=== PATIENT | male | born 1950 | race Caucasian/White ===

== ENCOUNTER 2019-04-26 23:51 | Inpatient (IN) ==
[2019-04-27] MEDS ORDERED: 0.9 % Sodium Chloride 1,000 ML IVC ONE
[2019-04-27] MEDS ORDERED: methylPREDNISolone 125 MG/2 ML VIAL IVP ONE
[2019-04-27] MEDS ORDERED: Ipratropium/Albuterol Neb 3 ML ONE ×2 (00:03→00:13)
[2019-04-27] MEDS ORDERED: Ipratropium/Albuterol Neb 3 ML IH ONE (00:05)
[2019-04-27 00:22] LABS: Basophils # 0.1 K/mcL (0.0-0.2); Basophils % 0.4 %; Hematocrit 39.6 % (37.5-50.1); Hemoglobin 13.6 g/dL (12.9-16.9); Immature Granulocytes % 0.4 % (0-4); Lymphocytes # 0.3 K/mcL (0.6-4.6); Lymphocytes % 2.4 %; Mean Corpuscular HGB Conc 34.3 g/dL (31.6-35.5); Mean Corpuscular Hemoglobin 31.2 pg (28.0-33.3); Mean Corpuscular Volume 90.8 fL (83.0-100.0); Mean Platelet Volume 10.2 fL (9.4-12.4); Monocytes # 1.4 K/mcL (0.0-1.3); Platelet Count 175 K/mcL (140-400); Red Blood Count 4.36 M/mcL (4.19-5.50); Red Cell Distribution Width 13.1 % (11.5-14.5); Segmented Neutrophils % 86.8 %
[2019-04-27 00:25] LABS: Neutrophils # 12.2 K/mcL (1.6-8.9)
[2019-04-27 00:39] LABS: Alanine Aminotransferase 11 Units/L (7-52); Albumin 3.5 g/dL (3.5-5.7); Alkaline Phosphatase 75 Units/L (34-104); Aspartate Amino Transferase 14 Units/L (13-39); BUN/Creatinine Ratio 10 (6-26); Bilirubin,Direct 0.2 mg/dL (0.0-0.2); Bilirubin,Indirect 0.5 mg/dL (0.0-1.2); Bilirubin,Total 0.7 mg/dL (0.3-1.0); Blood Urea Nitrogen 9 mg/dL (8-23); Calcium 8.9 mg/dL (8.6-10.3); Carbon Dioxide 20 mEq/L (23-29); Chloride 98 mEq/L (98-107); Globulin 3.5 g/dL (2.4-3.5); Glucose 188 mg/dL (70-105); Osmolality,Calculated 282 (280-300); Potassium 3.6 mEq/L (3.5-5.1); Sodium 134 mEq/L (136-145); eGFR For African Americans > 60 (> 60); eGFR For Non-African Americans > 60 (> 60)
[2019-04-27 00:43] LABS: Platelet Estimate Normal (Normal)
[2019-04-27 00:50] LABS: Troponin I 0.18 ng/mL (< 0.04)
--- NOTE | 2019-04-27 00:55 | Emergency Department Note ---
Disposition Clinical Impression: Acute exacerbation of chronic obstructive airways disease, Elevated troponin, Multifocal atrial tachycardia Disposition: Admitted As Inpatient Condition: Serious Time of Disposition: 03:41 SOB HPI - General Chief Complaint: ED Shortness of Breath/Dyspnea Stated Complaint: lance Time Seen by Provider: 04/27/19 00:00 Source: patient, family, EMS Mode of arrival: ambulatory Limitations: no limitations Nursing Notes Reviewed: Yes Vital Signs Reviewed: Yes - History of Present Illness 68-year-old male history of COPD presents to the emergency department with palpitations, tachycardia, shortness of breath and not feeling well. Patient states for the past week is not felt very mccullough been coughing up a bunch of phlegm said to yellow and greenish in color. He has not had any fevers. Has not been nauseous or vomiting. Today status started to not feel very well [email or web address] galindo she is having more difficult time breathing. He does not use oxygen at home does not have CPAP at home. Did use someone else's albuterol is a did feel mildly better after receiving that. Does not have history of atrial fibrillation and is not on any blood thinners. Has no history of ACS. Patient otherwise has no other complaints at this time. He says he does not feel well. He is not complaining of any chest pain at this time. Is complaining of generalized abdominal pain mainly located in the epigastrium. Says is not radiating. He describes the pain as 6 out of 10 worse with palpation dull throbbing ache. - Related Data Home Medications Medication Instructions Recorded Confirmed Albuterol Sulfate [Proair Hfa] 2 inh AER Q4HR PRN 04/27/19 04/28/19 Lisinopril [Zestril] 20 mg PO QAM 04/27/19 04/28/19 Simvastatin [Zocor] 20 mg PO HS 04/27/19 04/28/19 Allergies Allergy/AdvReac Type Severity Reaction Status Date / Time No Known Allergies Allergy Verified 04/28/19 09:04 All systems ED: reviewed and negative except as stated. Review of Systems: As Per HPI Past Medical History - Past Medical History Attestation: Yes The following information was validated with the patient. Source: patient Medical history: Reports: COPD, hypertension Surgical history: Reports: vasectomy Psychiatric history: Reports: no psych history - Social History Smoking Status: Current every day smoker Smokeless Tobacco Status: No Alcohol use: Reports: occasionally Drug use: Reports: marijuana Physical Exam - General Limitations: no limitations General appearance: alert - Head Head exam: atraumatic, normocephalic, normal inspection - Eye Eye exam: Present: normal appearance, PERRL, EOMI - ENT ENT exam: normal exam, normal oropharynx, mucous membranes moist - Neck Neck exam: Present: normal inspection, full ROM, trachea midline - Chest Chest inspection: Present: normal inspection, symmetric chest wall rise - Respiratory Respiratory exam: Present: wheezes (Bilaterally), accessory muscle use. Absent: respiratory distress, stridor, prolonged expiratory phase - Cardiovascular Cardiovascular exam: Present: regular rate, normal rhythm, normal heart sounds - Abdominal Exam Abdominal exam: Present: soft, tenderness. Absent: distention, guarding, rebound, rigidity Abdominal tenderness: Present: diffuse, mild - Extremities Exam Extremities exam: Present: normal inspection. Absent: pedal edema - Back Exam Back exam: Present: normal inspection, full ROM. Absent: tenderness, CVA tenderness (R), CVA tenderness (L) - Neurological Exam Neurological exam: Present: alert, oriented X3 - Skin Skin exam: Present: warm, dry, intact, normal color Course Course Narrative: Patient presented with shortness of breath. Patient was in MAT when he presented here. Patient is not anticoagulated. We will give patient 2 DuoNeb treatment as he did receive one prior to coming here. We will give patient Solu-Medrol for COPD exacerbation. We will get chest x-ray as well as basic labs getting CBC BMP lactate as well as troponin we will get EKG. Well-seated d-dimer. If elevated we will get CT angiogram of the chest pain we will do CT angiogram of the abdomen due to his abdominal pain as there is worried about possible mesenteric ischemia. Patient will be given magnesium as well as diltiazem to control his rate. We will give patient a magnesium drip after the bolus. Patient blood pressure is good at this time. Disposition most likely will be admission. Vital Signs O2 Sat by Pulse Oximetry 90 04/27/19 00:03 Temperature 99.2 F 04/27/19 00:11 Pulse Rate 110 04/27/19 02:30 Respiratory Rate 20 04/27/19 02:30 Blood Pressure 108/78 04/27/19 02:30 O2 Sat by Pulse Oximetry 96 04/27/19 02:30 Oxygen Delivery Oxygen Delivery Nasal Cannula Shortness of Breath/Dyspnea - MDM Narrative Medical decision making narrative: 68-year-old male presented to the emergency department with shortness of breath. He originally arrived he was in multi-focal atrial tachycardia. There was no signs of A. fib. We did start him on diltiazem to give him magnesium for this. Patient is also having a COPD exacerbation. He did receive Solu-Medrol as well as double DuoNeb treatment as he did receive an albuterol in route. Patient did have wheezing on exam and this did improve after receiving the DuoNeb's. We will treat patient with Zithromax. Did get a CT of the chest with contrast rule out pulmonary and was not due to an elevated d-dimer. This came back negative for PE but did show possible inflammation versus atelectasis. The COPD could be associated with this we also gave him Zithromax to help with possible pneumonia. CT abdomen and pelvis had no acute findings. Patient did have mild leukocytosis. We did have a first troponin of 0.18F first thought this was due to demand ischemia as he had no acute ST changes based on his EKG. We do a repeat a partially 2 hours later the was elevated to 0.23. Due to this we are going to start patient on low-dose heparin. To rule out ACS. I feel patient needs to be admitted for further evaluation. I spoke with Dr. Whitney who agreed to admit the patient to their service. Patient accepted in stable condition. Chest X-Ray 04/27/19 00:00 IMPRESSION: No evidence of acute cardiopulmonary disease. D/ / Barron Ribera MD / Barron Ribera MD Interpreting Provider: Barron Ribera MD Abdomen/Pelvis CTA 04/27/19 00:50 IMPRESSION: No evidence for aortic aneurysm or dissection. Central pulmonary arteries appear patent without evidence for pulmonary embolism. Diffuse tree-in-bud type opacities, right more than left. Findings are nonspecific and could reflect infectious/inflammatory process. Spiculated cavitary nodule to right upper lobe measuring 1.2 x 1.1 cm along with an irregular pulmonary nodule to the right lower lobe measuring 8 x 7 mm. Findings could potentially relate to infectious/inflammatory process above, but neoplastic etiology must be excluded. Recommend further evaluation with PET-CT versus soft tissue sampling versus close interval follow-up with repeat CT chest in 3 months. Mediastinal and bilateral hilar lymphadenopathy, nonspecific. This may be reactive, given the other findings metastatic disease is not excluded. Recommend attention on follow-up. No acute or suspicious abdominal or pelvic abnormality. Atherosclerosis to include coronary artery disease. D/ / Brenden Hartley MD / Brenden Hartley MD Interpreting Provider: Brenden Hartley MD Chest CTA 04/27/19 00:50 IMPRESSION: No evidence for aortic aneurysm or dissection. Central pulmonary arteries appear patent without evidence for pulmonary embolism. Diffuse tree-in-bud type opacities, right more than left. Findings are nonspecific and could reflect infectious/inflammatory process. Spiculated cavitary nodule to right upper lobe measuring 1.2 x 1.1 cm along with an irregular pulmonary nodule to the right lower lobe measuring 8 x 7 mm. Findings could potentially relate to infectious/inflammatory process above, but neoplastic etiology must be excluded. Recommend further evaluation with PET-CT versus soft tissue sampling versus close interval follow-up with repeat CT chest in 3 months. Mediastinal and bilateral hilar lymphadenopathy, nonspecific. This may be reactive, given the other findings metastatic disease is not excluded. Recommend attention on follow-up. No acute or suspicious abdominal or pelvic abnormality. Atherosclerosis to include coronary artery disease. D/ / Brenden Hartley MD / Brenden Hartley MD Interpreting Provider: Brenden Hartley MD - Medical Records Medical records reviewed: Yes I reviewed the patient's medical records. - Lab Data Lab results reviewed: Yes I reviewed the patient's lab results. Result diagrams: 04/27/19 08:22 04/28/19 04:27 Lab Results 04/27/19 04/27/19 04/27/19 Range/Units 00:05 00:05 00:05 WBC 14.0 H (4.3-11.1) K/mcL RBC 4.36 (4.19-5.50) M/mcL Hgb 13.6 (12.9-16.9) g/dL Hct 39.6 (37.5-50.1) % MCV 90.8 (83.0-100.0) fL MCH 31.2 (28.0-33.3) pg MCHC 34.3 (31.6-35.5) g/dL RDW 13.1 (11.5-14.5) % Plt Count 175 (140-400) K/mcL MPV 10.2 (9.4-12.4) fL Immature Gran % 0.4 (0-4) % Seg Neutrophils % 86.8 % Lymphocytes % 2.4 % Monocytes % 10.0 % Eosinophils % 0.0 % Basophils % 0.4 % Neutrophils # 12.2 H (1.6-8.9) K/mcL Lymphocytes # 0.3 L (0.6-4.6) K/mcL Monocytes # 1.4 H (0.0-1.3) K/mcL Eosinophils # 0.0 (0.0-0.6) K/mcL Basophils # 0.1 (0.0-0.2) K/mcL Platelet Estimate Normal (Normal) D-Dimer 1405 H (0-500) ng/mLFEU Sodium 134 L (136-145) mEq/L Potassium 3.6 (3.5-5.1) mEq/L Chloride 98 (98-107) mEq/L Carbon Dioxide 20 L (23-29) mEq/L BUN 9 (8-23) mg/dL Creatinine 0.88 (0.70-1.30) mg/dL Est GFR ( Amer) > 60 (> 60) Est GFR (Non-Af Amer) > 60 (> 60) BUN/Creatinine Ratio 10 (6-26) Glucose 188 H (70-105) mg/dL Calculated Osmolality 282 (280-300) Lactic Acid (0.5-2.2) mmol/L Calcium 8.9 (8.6-10.3) mg/dL Total Bilirubin 0.7 (0.3-1.0) mg/dL Direct Bilirubin 0.2 (0.0-0.2) mg/dL Indirect Bilirubin 0.5 (0.0-1.2) mg/dL AST 14 (13-39) Units/L ALT 11 (7-52) Units/L Alkaline Phosphatase 75 (34-104) Units/L Troponin I 0.18 H* (< 0.04) ng/mL B-Natriuretic Peptide (Less than 100) pg/mL Serum Total Protein 7.0 (6.4-8.9) g/dL Albumin 3.5 (3.5-5.7) g/dL Globulin 3.5 (2.4-3.5) g/dL Albumin/Globulin Ratio 1.0 L (1.1-2.2) Urine Color (Yellow) Urine Clarity (Clear) Urine pH (5.0-8.0) pH Units Ur Specific Preston (1.010-1.025) Urine Protein (Neg-Trace) mg/dL Urine Glucose (UA) (Normal) mg/dL Urine Ketones (Negative) mg/dL Urine Blood (Negative) Urine Nitrite (Negative) Urine Bilirubin (Negative) Urine Urobilinogen (Normal) mg/dL Ur Leukocyte Esterase (Negative) Urine Microscopic RBC (0-3) per hpf Urine Microscopic WBC (0-3) per hpf Ur Squamous Epith Cells (None-Few) per lpf Urine Bacteria (None-Few) per hpf Hyaline Casts (None-Few) per lpf Urine Mucus (Few) Ur Culture Indicated? (NO) 04/27/19 04/27/19 04/27/19 Range/Units 00:05 00:36 02:00 WBC (4.3-11.1) K/mcL RBC (4.19-5.50) M/mcL Hgb (12.9-16.9) g/dL Hct (37.5-50.1) % MCV (83.0-100.0) fL MCH (28.0-33.3) pg MCHC (31.6-35.5) g/dL RDW (11.5-14.5) % Plt Count (140-400) K/mcL MPV (9.4-12.4) fL Immature Gran % (0-4) % Seg Neutrophils % % Lymphocytes % % Monocytes % % Eosinophils % % Basophils % % Neutrophils # (1.6-8.9) K/mcL Lymphocytes # (0.6-4.6) K/mcL Monocytes # (0.0-1.3) K/mcL Eosinophils # (0.0-0.6) K/mcL Basophils # (0.0-0.2) K/mcL Platelet Estimate (Normal) D-Dimer (0-500) ng/mLFEU Sodium (136-145) mEq/L Potassium (3.5-5.1) mEq/L Chloride (98-107) mEq/L Carbon Dioxide (23-29) mEq/L BUN (8-23) mg/dL Creatinine (0.70-1.30) mg/dL Est GFR ( Amer) (> 60) Est GFR (Non-Af Amer) (> 60) BUN/Creatinine Ratio (6-26) Glucose (70-105) mg/dL Calculated Osmolality (280-300) Lactic Acid 2.1 2.8 H (0.5-2.2) mmol/L Calcium (8.6-10.3) mg/dL Total Bilirubin (0.3-1.0) mg/dL Direct Bilirubin (0.0-0.2) mg/dL Indirect Bilirubin (0.0-1.2) mg/dL AST (13-39) Units/L ALT (7-52) Units/L Alkaline Phosphatase (34-104) Units/L Troponin I (< 0.04) ng/mL B-Natriuretic Peptide 206 H (Less than 100) pg/mL Serum Total Protein (6.4-8.9) g/dL Albumin (3.5-5.7) g/dL Globulin (2.4-3.5) g/dL Albumin/Globulin Ratio (1.1-2.2) Urine Color (Yellow) Urine Clarity (Clear) Urine pH (5.0-8.0) pH Units Ur Specific Preston (1.010-1.025) Urine Protein (Neg-Trace) mg/dL Urine Glucose (UA) (Normal) mg/dL Urine Ketones (Negative) mg/dL Urine Blood (Negative) Urine Nitrite (Negative) Urine Bilirubin (Negative) Urine Urobilinogen (Normal) mg/dL Ur Leukocyte Esterase (Negative) Urine Microscopic RBC (0-3) per hpf Urine Microscopic WBC (0-3) per hpf Ur Squamous Epith Cells (None-Few) per lpf Urine Bacteria (None-Few) per hpf Hyaline Casts (None-Few) per lpf Urine Mucus (Few) Ur Culture Indicated? (NO) 04/27/19 04/27/19 Range/Units 02:00 02:15 WBC (4.3-11.1) K/mcL RBC (4.19-5.50) M/mcL Hgb (12.9-16.9) g/dL Hct (37.5-50.1) % MCV (83.0-100.0) fL MCH (28.0-33.3) pg MCHC (31.6-35.5) g/dL RDW (11.5-14.5) % Plt Count (140-400) K/mcL MPV (9.4-12.4) fL Immature Gran % (0-4) % Seg Neutrophils % % Lymphocytes % % Monocytes % % Eosinophils % % Basophils % % Neutrophils # (1.6-8.9) K/mcL Lymphocytes # (0.6-4.6) K/mcL Monocytes # (0.0-1.3) K/mcL Eosinophils # (0.0-0.6) K/mcL Basophils # (0.0-0.2) K/mcL Platelet Estimate (Normal) D-Dimer (0-500) ng/mLFEU Sodium (136-145) mEq/L Potassium (3.5-5.1) mEq/L Chloride (98-107) mEq/L Carbon Dioxide (23-29) mEq/L BUN (8-23) mg/dL Creatinine (0.70-1.30) mg/dL Est GFR ( Amer) (> 60) Est GFR (Non-Af Amer) (> 60) BUN/Creatinine Ratio (6-26) Glucose (70-105) mg/dL Calculated Osmolality (280-300) Lactic Acid (0.5-2.2) mmol/L Calcium (8.6-10.3) mg/dL Total Bilirubin (0.3-1.0) mg/dL Direct Bilirubin (0.0-0.2) mg/dL Indirect Bilirubin (0.0-1.2) mg/dL AST (13-39) Units/L ALT (7-52) Units/L Alkaline Phosphatase (34-104) Units/L Troponin I 0.23 H* (< 0.04) ng/mL B-Natriuretic Peptide (Less than 100) pg/mL Serum Total Protein (6.4-8.9) g/dL Albumin (3.5-5.7) g/dL Globulin (2.4-3.5) g/dL Albumin/Globulin Ratio (1.1-2.2) Urine Color Dark Yellow (Yellow) Urine Clarity Cloudy A (Clear) Urine pH 6.0 (5.0-8.0) pH Units Ur Specific Preston 1.019 (1.010-1.025) Urine Protein 100 H (Neg-Trace) mg/dL Urine Glucose (UA) 500 H (Normal) mg/dL Urine Ketones Trace H (Negative) mg/dL Urine Blood Small H (Negative) Urine Nitrite Negative (Negative) Urine Bilirubin Small H (Negative) Urine Urobilinogen 2.0 H (Normal) mg/dL Ur Leukocyte Esterase Negative (Negative) Urine Microscopic RBC 3-5 H (0-3) per hpf Urine Microscopic WBC 3-5 H (0-3) per hpf Ur Squamous Epith Cells Many H (None-Few) per lpf Urine Bacteria None Seen (None-Few) per hpf Hyaline Casts Moderate H (None-Few) per lpf Urine Mucus Many H (Few) Ur Culture Indicated? NO (NO) - Radiology Data Radiology results reviewed: Yes I reviewed the patient's radiology results. - EKG Data EKG attestation: Yes I reviewed and interpreted this EKG. EKG results narrative: EKG done at 0000 review by myself and attending shows MAT with 3-4 morphologies of P waves at a rate of 135, QRS 90, QTC 432. There is no acute ST changes no acute T-wave changes no other signs of ischemia. No signs of hypertrophy, heart strain, heart block. No WPW/Brugada/HOCM. EKG is changed based on old EKG done 02/29/12 where there is a normal sinus rhythm shown. EKG #2 done at 0-46 review myself and the attending shows sinus tachycardia at a rate of 103, [place] interval 155, QRS 89, QTC 444. There is no acute ST changes no acute T-wave changes no other signs of ischemia. No signs of hypertrophy, heart strain, heart block. Patient is now in a normal sinus rhythm has converte d from MAT Attestation Statement - Attestation Attestation: I have seen this patient with the resident physician, I have personally evaluated this patient. I had reviewed the chart and document dictation by the resident physician and aM in agreement with the information documented by the resident physician. Please see documentation by the resident physician for complete chart including past medical history, family medical history, review of systems, current history and physical and laboratory and imaging studies. I was present for all procedures, provided direct supervision for all procedures, was present for the entirety of all procedures and provided direct guidance during the procedures. Please see documentation by the resident physician for any procedures performed. I have reviewed all interpretations of EKGs, and reviewed all EKGs performed on patient's as well. I have also reviewed reports of imaging as provided by radiology.
[2019-04-27] MEDS ORDERED: Aspirin 81 MG TAB.CHEW PO ONE (01:31)
[2019-04-27] MEDS: Isovue-370 500 ML BOTTLE IVP ONE (02:23)
[2019-04-27 02:25] LABS: Bilirubin,Urine Small (Negative); Blood,Urine Small (Negative); Clarity,Urine Cloudy (Clear); Color,Urine Dark Yellow (Yellow); Glucose,Urine (UA) 500 mg/dL (Normal); Ketones,Urine Trace mg/dL (Negative); Leukocyte Esterase,Urine Negative (Negative); Nitrite,Urine Negative (Negative); Protein,Urine 100 mg/dL (Neg-Trace); Specific Gravity,Urine 1.019 (1.010-1.025)
[2019-04-27 02:27] LABS: Bacteria,Urine None Seen per hpf (None-Few); Hyaline Casts,Urine Moderate per lpf (None-Few); Squamous Epithelial Cell,Urine Many per lpf (None-Few)
[2019-04-27 02:43] LABS: Mucus,Urine Many (Few)
[2019-04-27] MEDS ORDERED: Azithromycin 500 MG in D5% in Water 250 ML IVPB ONE (03:29)
[2019-04-27] MEDS ORDERED: *HR* Heparin 5,000 UNIT/ML VIAL IVP ONE (03:35)
[2019-04-27] MEDS ORDERED: *HR* Heparin 5,000 UNIT/ML VIAL IVP PRN (03:35)
--- NOTE | 2019-04-27 03:37 | Emergency Department Note ---
Disposition Clinical Impression: Acute exacerbation of chronic obstructive airways disease, Elevated troponin, Multifocal atrial tachycardia Disposition: Admitted As Inpatient Condition: Serious Forms: ED Satisfaction Letter Time of Disposition: 03:37 General Adult HPI - General Chief complaint: ED Shortness of Breath/Dyspnea Stated complaint: lance Time Seen by Provider: 04/27/19 00:00 Source: patient, family, EMS Mode of arrival: ambulatory Limitations: no limitations Nursing Notes Reviewed: Yes Vital Signs Reviewed: Yes - History of Present Illness Pain Scale: 0 - Related Data Home Medications Medication Instructions Recorded Confirmed Albuterol Sulfate [Proair Hfa] 2 inh AER Q4HR PRN 04/27/19 04/27/19 Lisinopril [Zestril] 20 mg PO DAILY 04/27/19 04/27/19 Simvastatin [Zocor] 20 mg PO HS 04/27/19 04/27/19 Allergies Allergy/AdvReac Type Severity Reaction Status Date / Time No Known Allergies Allergy Verified 04/27/19 00:02 Past Medical History - Past Medical History Medical history: Reports: COPD, hypertension Surgical history: Reports: vasectomy Psychiatric history: Reports: no psych history - Social History Smoking Status: Current every day smoker Smokeless Tobacco Status: No Alcohol use: Reports: occasionally Drug use: Reports: marijuana Physical Exam - General Limitations: no limitations General appearance: alert Course Vital Signs O2 Sat by Pulse Oximetry 90 04/27/19 00:03 Temperature 99.2 F 04/27/19 00:11 Pulse Rate 110 04/27/19 02:30 Respiratory Rate 20 04/27/19 02:30 Blood Pressure 108/78 04/27/19 02:30 O2 Sat by Pulse Oximetry 96 04/27/19 02:30 Oxygen Delivery Oxygen Delivery Nasal Cannula Medical Decision Making - Lab Data Result diagrams: 04/27/19 00:05 04/27/19 00:05 Lab Results 04/27/19 04/27/19 04/27/19 Range/Units 00:05 00:05 00:05 WBC 14.0 H (4.3-11.1) K/mcL RBC 4.36 (4.19-5.50) M/mcL Hgb 13.6 (12.9-16.9) g/dL Hct 39.6 (37.5-50.1) % MCV 90.8 (83.0-100.0) fL MCH 31.2 (28.0-33.3) pg MCHC 34.3 (31.6-35.5) g/dL RDW 13.1 (11.5-14.5) % Plt Count 175 (140-400) K/mcL MPV 10.2 (9.4-12.4) fL Immature Gran % 0.4 (0-4) % Seg Neutrophils % 86.8 % Lymphocytes % 2.4 % Monocytes % 10.0 % Eosinophils % 0.0 % Basophils % 0.4 % Neutrophils # 12.2 H (1.6-8.9) K/mcL Lymphocytes # 0.3 L (0.6-4.6) K/mcL Monocytes # 1.4 H (0.0-1.3) K/mcL Eosinophils # 0.0 (0.0-0.6) K/mcL Basophils # 0.1 (0.0-0.2) K/mcL Platelet Estimate Normal (Normal) D-Dimer 1405 H (0-500) ng/mLFEU Sodium 134 L (136-145) mEq/L Potassium 3.6 (3.5-5.1) mEq/L Chloride 98 (98-107) mEq/L Carbon Dioxide 20 L (23-29) mEq/L BUN 9 (8-23) mg/dL Creatinine 0.88 (0.70-1.30) mg/dL Est GFR ( Amer) > 60 (> 60) Est GFR (Non-Af Amer) > 60 (> 60) BUN/Creatinine Ratio 10 (6-26) Glucose 188 H (70-105) mg/dL Calculated Osmolality 282 (280-300) Lactic Acid (0.5-2.2) mmol/L Calcium 8.9 (8.6-10.3) mg/dL Total Bilirubin 0.7 (0.3-1.0) mg/dL Direct Bilirubin 0.2 (0.0-0.2) mg/dL Indirect Bilirubin 0.5 (0.0-1.2) mg/dL AST 14 (13-39) Units/L ALT 11 (7-52) Units/L Alkaline Phosphatase 75 (34-104) Units/L Troponin I 0.18 H* (< 0.04) ng/mL B-Natriuretic Peptide (Less than 100) pg/mL Serum Total Protein 7.0 (6.4-8.9) g/dL Albumin 3.5 (3.5-5.7) g/dL Globulin 3.5 (2.4-3.5) g/dL Albumin/Globulin Ratio 1.0 L (1.1-2.2) Urine Color (Yellow) Urine Clarity (Clear) Urine pH (5.0-8.0) pH Units Ur Specific Arnold (1.010-1.025) Urine Protein (Neg-Trace) mg/dL Urine Glucose (UA) (Normal) mg/dL Urine Ketones (Negative) mg/dL Urine Blood (Negative) Urine Nitrite (Negative) Urine Bilirubin (Negative) Urine Urobilinogen (Normal) mg/dL Ur Leukocyte Esterase (Negative) Urine Microscopic RBC (0-3) per hpf Urine Microscopic WBC (0-3) per hpf Ur Squamous Epith Cells (None-Few) per lpf Urine Bacteria (None-Few) per hpf Hyaline Casts (None-Few) per lpf Urine Mucus (Few) Ur Culture Indicated? (NO) 04/27/19 04/27/19 04/27/19 Range/Units 00:05 00:36 02:00 WBC (4.3-11.1) K/mcL RBC (4.19-5.50) M/mcL Hgb (12.9-16.9) g/dL Hct (37.5-50.1) % MCV (83.0-100.0) fL MCH (28.0-33.3) pg MCHC (31.6-35.5) g/dL RDW (11.5-14.5) % Plt Count (140-400) K/mcL MPV (9.4-12.4) fL Immature Gran % (0-4) % Seg Neutrophils % % Lymphocytes % % Monocytes % % Eosinophils % % Basophils % % Neutrophils # (1.6-8.9) K/mcL Lymphocytes # (0.6-4.6) K/mcL Monocytes # (0.0-1.3) K/mcL Eosinophils # (0.0-0.6) K/mcL Basophils # (0.0-0.2) K/mcL Platelet Estimate (Normal) D-Dimer (0-500) ng/mLFEU Sodium (136-145) mEq/L Potassium (3.5-5.1) mEq/L Chloride (98-107) mEq/L Carbon Dioxide (23-29) mEq/L BUN (8-23) mg/dL Creatinine (0.70-1.30) mg/dL Est GFR ( Amer) (> 60) Est GFR (Non-Af Amer) (> 60) BUN/Creatinine Ratio (6-26) Glucose (70-105) mg/dL Calculated Osmolality (280-300) Lactic Acid 2.1 2.8 H (0.5-2.2) mmol/L Calcium (8.6-10.3) mg/dL Total Bilirubin (0.3-1.0) mg/dL Direct Bilirubin (0.0-0.2) mg/dL Indirect Bilirubin (0.0-1.2) mg/dL AST (13-39) Units/L ALT (7-52) Units/L Alkaline Phosphatase (34-104) Units/L Troponin I (< 0.04) ng/mL B-Natriuretic Peptide 206 H (Less than 100) pg/mL Serum Total Protein (6.4-8.9) g/dL Albumin (3.5-5.7) g/dL Globulin (2.4-3.5) g/dL Albumin/Globulin Ratio (1.1-2.2) Urine Color (Yellow) Urine Clarity (Clear) Urine pH (5.0-8.0) pH Units Ur Specific Arnold (1.010-1.025) Urine Protein (Neg-Trace) mg/dL Urine Glucose (UA) (Normal) mg/dL Urine Ketones (Negative) mg/dL Urine Blood (Negative) Urine Nitrite (Negative) Urine Bilirubin (Negative) Urine Urobilinogen (Normal) mg/dL Ur Leukocyte Esterase (Negative) Urine Microscopic RBC (0-3) per hpf Urine Microscopic WBC (0-3) per hpf Ur Squamous Epith Cells (None-Few) per lpf Urine Bacteria (None-Few) per hpf Hyaline Casts (None-Few) per lpf Urine Mucus (Few) Ur Culture Indicated? (NO) 04/27/19 04/27/19 Range/Units 02:00 02:15 WBC (4.3-11.1) K/mcL RBC (4.19-5.50) M/mcL Hgb (12.9-16.9) g/dL Hct (37.5-50.1) % MCV (83.0-100.0) fL MCH (28.0-33.3) pg MCHC (31.6-35.5) g/dL RDW (11.5-14.5) % Plt Count (140-400) K/mcL MPV (9.4-12.4) fL Immature Gran % (0-4) % Seg Neutrophils % % Lymphocytes % % Monocytes % % Eosinophils % % Basophils % % Neutrophils # (1.6-8.9) K/mcL Lymphocytes # (0.6-4.6) K/mcL Monocytes # (0.0-1.3) K/mcL Eosinophils # (0.0-0.6) K/mcL Basophils # (0.0-0.2) K/mcL Platelet Estimate (Normal) D-Dimer (0-500) ng/mLFEU Sodium (136-145) mEq/L Potassium (3.5-5.1) mEq/L Chloride (98-107) mEq/L Carbon Dioxide (23-29) mEq/L BUN (8-23) mg/dL Creatinine (0.70-1.30) mg/dL Est GFR ( Amer) (> 60) Est GFR (Non-Af Amer) (> 60) BUN/Creatinine Ratio (6-26) Glucose (70-105) mg/dL Calculated Osmolality (280-300) Lactic Acid (0.5-2.2) mmol/L Calcium (8.6-10.3) mg/dL Total Bilirubin (0.3-1.0) mg/dL Direct Bilirubin (0.0-0.2) mg/dL Indirect Bilirubin (0.0-1.2) mg/dL AST (13-39) Units/L ALT (7-52) Units/L Alkaline Phosphatase (34-104) Units/L Troponin I 0.23 H* (< 0.04) ng/mL B-Natriuretic Peptide (Less than 100) pg/mL Serum Total Protein (6.4-8.9) g/dL Albumin (3.5-5.7) g/dL Globulin (2.4-3.5) g/dL Albumin/Globulin Ratio (1.1-2.2) Urine Color Dark Yellow (Yellow) Urine Clarity Cloudy A (Clear) Urine pH 6.0 (5.0-8.0) pH Units Ur Specific Arnold 1.019 (1.010-1.025) Urine Protein 100 H (Neg-Trace) mg/dL Urine Glucose (UA) 500 H (Normal) mg/dL Urine Ketones Trace H (Negative) mg/dL Urine Blood Small H (Negative) Urine Nitrite Negative (Negative) Urine Bilirubin Small H (Negative) Urine Urobilinogen 2.0 H (Normal) mg/dL Ur Leukocyte Esterase Negative (Negative) Urine Microscopic RBC 3-5 H (0-3) per hpf Urine Microscopic WBC 3-5 H (0-3) per hpf Ur Squamous Epith Cells Many H (None-Few) per lpf Urine Bacteria None Seen (None-Few) per hpf Hyaline Casts Moderate H (None-Few) per lpf Urine Mucus Many H (Few) Ur Culture Indicated? NO (NO) Attestation Statement - Attestation Attestation: I have seen this patient with the resident physician, I have personally evaluated this patient. I had reviewed the chart and document dictation by the resident physician and aM in agreement with the information documented by the resident physician. Please see documentation by the resident physician for complete chart including past medical history, family medical history, review of systems, current history and physical and laboratory and imaging studies. I was present for all procedures, provided direct supervision for all procedures, was present for the entirety of all procedures and provided direct guidance during the procedures. Please see documentation by the resident physician for any procedures performed. I have reviewed all interpretations of EKGs, and reviewed all EKGs performed on patient's as well. I have also reviewed reports of imaging as provided by radiology. Patient presented emergency department primary chief complaint shortness of breath. Upon presentation, the patient was tachycardic, irregularly irregular, he was hypoxic, with low-grade temperature elevation of 99.2 but without true fever. The patient had diffuse wheezing auscultated throughout his lungs, with mild respiratory distress, prolonged expiratory phase, and coarse breath sounds auscultated throughout the lungs without focal adventitious sounds. No obvious JVD, abdomen soft and mild epigastric tender, no palpable or pulsatile mass, no evidence of DVT skin warm dry without rash or petechiae, he does appear ill, no ntoxic but with mild to moderate respiratory distress. Oropharynx was normal. EKG demonstrated evidence for multifocal atrial tachycardia, heart rate on the monitor ranged anywhere from 135 up to 160 bye-bye EKG was in the 130s. EKG demonstrated no evidence of acute ischemia, no evidence of ST elevation or ST depression. Patient had IVs started he was given IV fluids he was given IV steroids, he was started on IV diltiazem and IV magnesium for multifocal atrial tachycardia as we ll as for COPD. He was given breathing treatments. Chest x-ray as interpreted by radiology did not show any acute findings. Basic laboratory studies demonstrated elevated white blood cell count renal panel within acceptable limits troponin borderline at 0.18, he was given aspirin but remained chest pain-free and with continued improvement of symptoms with the above medications. He did complain of some abdominal pain upon arrival and did have some mild upper abdominal tenderness, with new onset of cardiac dysrhythmia, secondary to his tachycardia hypoxia, even though he seemed to have other potential reasoning for this, a d-dimer was ordered which was elevated at 1400. He was sent for a CT pulmonary embolism protocol as well as a CT of his abdomen to rule out any evidence of a bowel infarction/ischemia secondary to new cardiac dysrhythmia with some mild abdominal discomfort. CT chest showed no pulmonary embolism, demonstrated patchy airspace disease, and a spiculated abnormality, no focal area of pneumonia, but with his history of COPD he was also started on IV antibiotics. CT of the abdomen showed no evidence of acute vascular abnormality, no acute intra-abdominal process, no evidence of ischemic bowel. A secondary troponin was ordered to evaluate for any up trending of his troponin, and an hour and a half, his troponin increased to 0.23 from 0.18, secondary to this up for him even though he had no chest pain, he was started on IV heparin. The patient while on diltiazem drip, had spontaneous cardioversion, a repeat EKG shows a sinus rhythm, no evidence of acute ischemic dysrhythmia or hyperkalemia, no ST elevation or ST depression, were able to stop his diltiazem drip. Patient admitted to the hospital for further evaluation. Total critical care time as provided by myself is 55 minutes, excluding any procedures performed
[2019-04-27] MEDS ORDERED: Azithromycin 500 MG VIAL ONE (03:58)
[2019-04-27] MEDS ORDERED: Water for inj. (sterile) 10 ML ONE (04:00)
[2019-04-27 04:02] LABS: Hematocrit 37.6 % (37.5-50.1); Hemoglobin 12.8 g/dL (12.9-16.9); Mean Corpuscular Hemoglobin 31.8 pg (28.0-33.3); Mean Corpuscular Volume 93.3 fL (83.0-100.0); Mean Platelet Volume 10.5 fL (9.4-12.4); Platelet Count 168 K/mcL (140-400); Red Blood Count 4.03 M/mcL (4.19-5.50); Red Cell Distribution Width 13.1 % (11.5-14.5); White Blood Count 10.7 K/mcL (4.3-11.1)
[2019-04-27 04:10] LABS: INR 1.5; Prothrombin Time 16.4 Seconds (9.4-12.1)
[2019-04-27] MEDS: Heparin 25,000 UNIT/250 ML D5W 25,000 UNIT/250 ML IV.SOLN IVC SCH (04:12)
[2019-04-27] MEDS ORDERED: D5% in Water 250 ML ONE (04:22)
[2019-04-27] MEDS ORDERED: Naloxone 0.4 MG/ML INJ IVP PRN (04:34)
--- NOTE | 2019-04-27 05:01 | Internal Med History&Physical ---
Date of Encounter: 04/27/19 Time of Encounter: 04:22 Internal Medicine - H&P: HPI Chief complaint: Shortness of breath Admitted From: Emergency Dept Plans for Post Hospital Care: Home History of present illness: Mr. Bhatti is a 68 year old male Patient presented to the emergency department with shortness of breath for 5 days. He indicates that his shortness of breath is worse with exertion, he is never had anything like that before. He had associated dizziness as well as cough productive of yellow sputum. He has a history of smoking, 2 packs per day for many years. As his symptoms are not improving, his suggested they come to the emergency room for further evaluation. In the ER, patient's pulse was noted to be 143 and irregular. Blood pressure was 123/109 CBC initially demonstrated a white count of 14.0, but this improved on repeat to 10.7 BNP notable for a glucose of 18 Initial troponin 0.18, increasing to 0.23. BNP 206 Lactic acid 2.1, increasing to 2.8. INR 1.5 D-dimer 1405 Urinalysis: Glucose 500, negative nitrite and negative leukocyte esterase no bacteria, culture not indicated Chest x-ray no evidence of acute cardiopulmonary disease Chest abdomen and pelvis CT angiogram: No evidence of aortic aneurysm or dissection, no evidence of pulmonary embolism. Diffuse tree-in-bud type opac ities right more than left. Spiculated cavitary nodule in right upper lobe 1.2 x 1.1 cm with a old right lower lobe irregular pulmonary nodule of 8 x 7 mm. Recommended PET-CT for further evaluation. Patient was given 1 L of IV fluid, aspirin, started on a diltiazem drip, heparin drip and IV magnesium. He also received breathing treatments and IV steroids. Patient's EKG: EKG: Initial EKG shows sinus tachycardia with a rate of 103 with variable P waves, repeat EKG showed atrial fibrillation with continued variable P waves final EKG after conversion showed sinus bradycardia with no ischemic changes. Patient converted with the treatment. Shortness of breath improved with breathing treatments. He was admitted to the hospital for further management. Upon my evaluation, patient is resting comfortably in the ER bed in no acute distress. He denies chest pain, abdominal pain, nausea, vomiting, diarrhea, constipation and vision changes. He is a heavy smoker and a prediabetic. He has a significant family medical history of heart disease, his brother from a heart attack at age of 49 and his father passed way from a heart attack at age of 61. His mother also has heart disease and diabetes. He is a full code. Past Med Surg Social Fam HX - Past Medical History Medical history: COPD, hypertension Additional medical history: pre-diabetes Psychiatric history: no psych history - Past Surgical History Surgical History: vasectomy - Social History Smoking Status: Current every day smoker Smokeless Tobacco Status: No Alcohol use: occasionally Drug use: marijuana Internal Medicine - H&P: Meds Albuterol Sulfate [Proair Hfa] 2 inh AER Q4HR PRN 04/27/19 [History] Lisinopril [Zestril] 20 mg PO DAILY 04/27/19 [History] Simvastatin [Zocor] 20 mg PO HS 04/27/19 [History] Allergy/AdvReac Type Severity Reaction Status Date / Time No Known Allergies Allergy Verified 04/27/19 00:02 All Systems PM: A 10-system review of systems was performed and is negative for pertinent findings except as documented above in the HPI. - Constitutional Vitals: Temp Pulse Resp BP Pulse Ox 99.2 F 103 20 106/74 96 04/27/19 00:11 04/27/19 04:00 04/27/19 04:00 04/27/19 04:00 04/27/19 04:00 General appearance: Present: cooperative, A&O X 3, pleasant, no acute distress, answers questions appropriately Exam: - - Head Head exam: Present: normal inspection - Eye Eye exam: Present: EOMI, normal appearance - Neck Neck exam general surgery: Present: full ROM - Respiratory Respiratory exam: Present: decreased breath sounds, CTAB. Absent: rales, r espiratory distress, rhonchi, wheezes - Cardiovascular Cardiovascular exam: Present: RRR. Absent: diastolic murmur, systolic murmur Additional comments: Examined after patient converted back to sinus rhythm - GI/Abdominal GI/Abdominal exam: Present: normal bowel sounds, soft. Absent: tenderness - Extremities Exam Extremities exam: Present: warm, radial pulses palpable and symmetrical. Absent: calf tenderness, pedal edema, tenderness - Neurological Exam Neurological exam: Present: no focal deficits, strengths equal and symetr throughout. Absent: motor sensory deficit, facial droop, speech deficit - Skin Skin exam: Present: diaphoretic, dry, normal color, warm Internal Med - H&P Results - Labs CBC & Chem 7: 04/27/19 03:47 04/27/19 00:05 Labs: Short CBC 04/27/19 04/27/19 Range/Units 00:05 03:47 WBC 14.0 H 10.7 (4.3-11.1) K/mcL Hgb 13.6 12.8 L (12.9-16.9) g/dL Hct 39.6 37.6 (37.5-50.1) % Plt Count 175 168 (140-400) K/mcL Neutrophils # 12.2 H (1.6-8.9) K/mcL BMP 04/27/19 00:05 Sodium 134 L Potassium 3.6 Chloride 98 Carbon Dioxide 20 L BUN 9 Creatinine 0.88 Glucose 188 H Calcium 8.9 Cardiac Enzymes 04/27/19 04/27/19 Range/Units 00:05 02:00 Troponin I 0.18 H* 0.23 H* (< 0.04) ng/mL Liver Function 04/27/19 Range/Units 00:05 Total Bilirubin 0.7 (0.3-1.0) mg/dL Direct Bilirubin 0.2 (0.0-0.2) mg/dL AST 14 (13-39) Units/L ALT 11 (7-52) Units/L Alkaline Phosphatase 75 (34-104) Units/L Albumin 3.5 (3.5-5.7) g/dL Urine 04/27/19 Range/Units 02:15 Urine Color Dark Yellow (Yellow) Urine Clarity Cloudy A (Clear) Urine pH 6.0 (5.0-8.0) pH Units Ur Specific Gardner 1.019 (1.010-1.025) Urine Protein 100 H (Neg-Trace) mg/dL Urine Glucose (UA) 500 H (Normal) mg/dL - Impressions ITS Impressions Chest X-Ray 04/27/19 00:00 IMPRESSION: No evidence of acute cardiopulmonary disease. D/ / Barron Ribera MD / Barron Ribera MD Interpreting Provider: Barron Ribera MD Abdomen/Pelvis CTA 04/27/19 00:50 IMPRESSION: No evidence for aortic aneurysm or dissection. Central pulmonary arteries appear patent without evidence for pulmonary embolism. Diffuse tree-in-bud type opacities, right more than left. Findings are nonspecific and could reflect infectious/inflammatory process. Spiculated cavitary nodule to right upper lobe measuring 1.2 x 1.1 cm along with an irregular pulmonary nodule to the right lower lobe measuring 8 x 7 mm. Findings could potentially relate to infectious/inflammatory process above, but neoplastic etiology must be excluded. Recommend further evaluation with PET-CT versus soft tissue sampling versus close interval follow-up with repeat CT chest in 3 months. Mediastinal and bilateral hilar lymphadenopathy, nonspecific. This may be reactive, given the other findings metastatic disease is not excluded. Recommend attention on follow-up. No acute or suspicious abdominal or pelvic abnormality. Atherosclerosis to include coronary artery disease. D/ / Brenden Hartley MD / Brenden Hartley MD Interpreting Provider: Brenden Hartley MD Chest CTA 04/27/19 00:50 IMPRESSION: No evidence for aortic aneurysm or dissection. Central pulmonary arteries appear patent without evidence for pulmonary embolism. Diffuse tree-in-bud type opacities, right more than left. Findings are nonspecific and could reflect infectious/inflammatory process. Spiculated cavitary nodule to right upper lobe measuring 1.2 x 1.1 cm along with an irregular pulmonary nodule to the right lower lobe measuring 8 x 7 mm. Findings could potentially relate to infectious/inflammatory process above, but neoplastic etiology must be excluded. Recommend further evaluation with PET-CT versus soft tissue sampling versus close interval follow-up with repeat CT chest in 3 months. Mediastinal and bilateral hilar lymphadenopathy, nonspecific. This may be reactive, given the other findings metastatic disease is not excluded. Recommend attention on follow-up. No acute or suspicious abdominal or pelvic abnormality. Atherosclerosis to include coronary artery disease. D/ / Brenden Hartley MD / Brenden Hartley MD Interpreting Provider: Brenden Hartley MD - Assessment and Plan (1) Multifocal atrial tachycardia Current Visit: Yes Status: Acute Assessment and plan: Now improved after diltiazem and magnesium. Patient on heparin drip for elevated troponin. Continue cardiac monitoring Continue to trend troponin Echocardiogram in the morning Cardiology consult (2) Acute exacerbation of chronic obstructive airways disease Current Visit: Yes Status: Acute Assessment and plan: Patient not on oxygen at home. Would get short of breath with exertion. Heavy smoker as well as diabetic. Continue breathing treatments Oxygen supplementation as needed IV steroids Treating pneumonia as below (3) Elevated troponin Current Visit: Yes Status: Acute Assessment and plan: Troponin elevated to 0.23. Patient denies chest pain. Continue to trend troponin gambling monitor Cardiology consult in the morning Echocardiogram in the morning Heparin drip (4) Pneumonia Current Visit: Yes Status: Acute Assessment and plan: Patient's chest CT shows tree-in-bud opacities, possible infectious process. Blood cultures were drawn and patient was given azithromycin in the emergency room. Continue azithromycin, add ceftriaxone Follow-up blood cultures Oxygen supplementation as needed Monitor for worsening signs of infection Repeat lactic acid 2.2 from 2.8 Qualifiers: Pneumonia type: due to unspecified organism Laterality: bilateral Lung location: unspecified part of lung Qualified Code(s): J18.9 - Pneumonia, unspecified organism (5) Lung nodule Current Visit: Yes Status: Acute Assessment and plan: As seen on imaging of the chest patient has 1.2 x 1.1 cm irregular cavitary nodule in the right upper lobe. Recommend PET-CT for follow-up (6) Diabetes Current Visit: Yes Status: Acute Assessment and plan: Patient is not an insulin dependent diabetic Monitor sugars Q6H NPO Low dose insulin sliding scale as needed Hold home meds. Qualifiers: Diabetes mellitus type: type 2 Diabetes mellitus penitentiary insulin use: without penitentiary use Diabetes mellitus complication status: with hyperglycemia Qualified Code(s): E11.65 - Type 2 diabetes mellitus with hyperglycemia (7) Nicotine dependence Current Visit: Yes Status: Acute Assessment and plan: 2 pack per day smoker. Nicotine patch as needed Qualifiers: Nicotine product type: cigarettes Substance use status: uncomplicated Qualified Code(s): F17.210 - Nicotine dependence, cigarettes, uncomplicated (8) DVT prophylaxis Current Visit: Yes Status: Acute Assessment and plan: Patient on heparin drip - Time Spent With Patient Total time spent is greater than 50% in coordination of care (as documented) at patient's floor/unit and/or counseling patient: Greater than 35 minutes
[2019-04-27] MEDS ORDERED: *HR* Dextrose 50 % in Water (Syg) 50 ML SYRINGE IVP PRN (05:21)
[2019-04-27] MEDS ORDERED: Dextrose Gel 15 GM/37.5 ML TUBE PO PRN ×2 (05:21)
[2019-04-27] MEDS ORDERED: Nicotine 21 MG PATCH.TD24 TD PRN (05:21)
[2019-04-27] MEDS ORDERED: D5% in Water 1,000 ML IVC PRN (05:21)
[2019-04-27] MEDS ORDERED: Albuterol 2.5 MG/3 ML NEBULIZER IH PRN (05:24)
[2019-04-27] MEDS: MethylPREDNISolone 40 MG/ML VIAL IVP SCH ×3 (06:23→17:59)
[2019-04-27] MEDS: Insulin LISPRO 300 UNITS/3 ML VIAL SQ SCH ×3 (06:24→17:59)
[2019-04-27] MEDS: cefTRIAXone 1,000 MG in Water for inj. (sterile) 20 ML 10 ML IVP SCH (08:27)
[2019-04-27 08:46] LABS: Hematocrit 39.2 % (37.5-50.1); Hemoglobin 13.2 g/dL (12.9-16.9); Mean Corpuscular HGB Conc 33.7 g/dL (31.6-35.5); Mean Corpuscular Hemoglobin 30.6 pg (28.0-33.3); Mean Platelet Volume 10.3 fL (9.4-12.4); Platelet Count 186 K/mcL (140-400); Red Blood Count 4.31 M/mcL (4.19-5.50); Red Cell Distribution Width 13.2 % (11.5-14.5); White Blood Count 10.3 K/mcL (4.3-11.1)
[2019-04-27 08:56] LABS: BUN/Creatinine Ratio 11 (6-26); Blood Urea Nitrogen 9 mg/dL (8-23); Calcium 8.8 mg/dL (8.6-10.3); Carbon Dioxide 26 mEq/L (23-29); Chloride 103 mEq/L (98-107); Glucose 189 mg/dL (70-105); Osmolality,Calculated 286 (280-300); Potassium 3.1 mEq/L (3.5-5.1); Sodium 136 mEq/L (136-145); eGFR For African Americans > 60 (> 60); eGFR For Non-African Americans > 60 (> 60)
--- NOTE | 2019-04-27 11:13 | Cardiology Consult Note ---
<Finn Hawk - Last Filed: 04/27/19 11:07> Date of Encounter: 04/27/19 Time of Encounter: 11:08 Assessment and Plan (1) Elevated troponin Current Visit: Yes Status: Acute Troponin elevation, 0.18, 0.23, 0.40. EKG today shows Sr with no acute St changes. Another EKG this morning shows atrial fibrillation HR [address] changes. NSTEMI type I vs type II in setting PNA, COPD. CTA chest negative for PE or dissection. Noted to have inflammatory changes, lung nodules and lymphadenopathy. Atherosclerosis noted. TTE pending. No prior history of CAD. Cardiac risk factors include extensive family history of [place]/CAD at young age in multiple siblings, tobacco abuse, HTN, and HLD. LHC is recommended for ischemic evaluation once patient improves from respiratory standpoint. LHC R/B/A reviewed with patient and and he agrees to proceed once able. Continue heparin gtt. Asa, statin, bb. (2) Atrial fibrillation Current Visit: Yes Status: Acute Atrial fibrillation with RVR seen this morning and documented with EKG. Patient given cardizem bolus. IV gtt ordered but is now off. Now NSR. Start bb. On heparin gtt. I discussed need for possible nursing home AC with coumadin vs NOAC with patient. He agrees to AC. Further recs pending hospital course. Qualifiers: Atrial fibrillation type: paroxysmal Qualified Code(s): I48.0 - Paroxysmal atrial fibrillation Discussion w patient/family: The assessment and plan as outlined above was discussed with the patient and/or family members who expressed understanding and agreement. All questions were answered. Thank you for involving us in the care of your patient. Please call with any questions. History of Present Illness Consult date: 04/27/19 Requesting physician: Timi Jefferson Consult reason: elevated troponin, atrial tachycardia Chief complaint: SOB for 5 days History of present illness: Mr. Bhatti is a 68 year old male with past medical history of COPD, tobacco use, HLD, and HTN who presents with c/o SOB for 5 days. He is found to have COPD exacerbation and PNA. Cardiology consulted for elevated troponin and intermittent atrial tachycardia. Patient denies prior cardiac history. He did undergo stress test previously that was normal. Denies chest pain. Denies N/V or diphoresis. C/o dizziness and dyspnea with exertion. Past Med Surg Social Fam HX - Past Medical History Medical history: COPD, hyperlipidemia, hypertension Additional medical history: pre-diabetes Psychiatric history: no psych history - Past Surgical History Surgical History: vasectomy - Social History Smoking Status: Current every day smoker Packs per day: 2 Smokeless Tobacco Status: No Alcohol use: occasionally Drug use: marijuana - Family History Brother Hx Family Respiratory Disorders: Yes (Lung dx) Medications and Allergies Albuterol Sulfate [Proair Hfa] 2 inh AER Q4HR PRN 04/27/19 [History] Lisinopril [Zestril] 20 mg PO DAILY 04/27/19 [History] Simvastatin [Zocor] 20 mg PO HS 04/27/19 [History] Allergy/AdvReac Type Severity Reaction Status Date / Time No Known Allergies Allergy Verified 04/27/19 00:02 All Systems Review: The remainder of the systems were reviewed and are negative Physical Examination Vital Signs, Last 4 Hours Temp Pulse Resp BP Pulse Ox 04/27/19 07:45 98.3 F 89 20 111/74 95 Chest X-Ray 04/27/19 00:00 IMPRESSION: No evidence of acute cardiopulmonary disease. D/ / Barron Riebra MD / Barron Ribera MD Interpreting Provider: Barron Ribera MD Abdomen/Pelvis CTA 04/27/19 00:50 IMPRESSION: No evidence for aortic aneurysm or dissection. Central pulmonary arteries appear patent without evidence for pulmonary embolism. Diffuse tree-in-bud type opacities, right more than left. Findings are nonspecific and could reflect infectious/inflammatory process. Spiculated cavitary nodule to right upper lobe measuring 1.2 x 1.1 cm along with an irregular pulmonary nodule to the right lower lobe measuring 8 x 7 mm. Findings could potentially relate to infectious/inflammatory process above, but neoplastic etiology must be excluded. Recommend further evaluation with PET-CT versus soft tissue sampling versus close interval follow-up with repeat CT chest in three months. Mediastinal and bilateral hilar lymphadenopathy, nonspecific. This may be reactive, given the other findings metastatic disease is not excluded. Recommend attention on follow-up. No acute or suspicious abdominal or pelvic abnormality. Atherosclerosis to include coronary artery disease. D/ / 04/27/2019 07:11:56 Brenden Hartley MD / jessica Interpreting Provider: Brenden Hartley MD Chest CTA 04/27/19 00:50 IMPRESSION: No evidence for aortic aneurysm or dissection. Central pulmonary arteries appear patent without evidence for pulmonary embolism. Diffuse tree-in-bud type opacities, right more than left. Findings are nonspecific and could reflect infectious/inflammatory process. Spiculated cavitary nodule to right upper lobe measuring 1.2 x 1.1 cm along with an irregular pulmonary nodule to the right lower lobe measuring 8 x 7 mm. Findings could potentially relate to infectious/inflammatory process above, but neoplastic etiology must be excluded. Recommend further evaluation with PET-CT versus soft tissue sampling versus close interval follow-up with repeat CT chest in three months. Mediastinal and bilateral hilar lymphadenopathy, nonspecific. This may be reactive, given the other findings metastatic disease is not excluded. Recommend attention on follow-up. No acute or suspicious abdominal or pelvic abnormality. Atherosclerosis to include coronary artery disease. D/ / 04/27/2019 07:11:56 Brenden Hartley MD / jessica Interpreting Provider: Brenden Hartley MD General: Conversant, No Apparent Distress HEENT: Atraumatic, Normocephaly, Mucus Membranes Moist Neck: No JVD, Normal carotid pulses Cardiac: Reg Rate and Rhythm, Normal S1 and S2, No Murmur Lungs: Normal Breath Sounds, No Wheeze, Rales, Rhonchi Neuro: Alert and responsive, No focal deficits noted Abdomen: Soft, Non-Tender Skin: No rashes noted on visualized skin Musculoskeletal: No Chest Wall Tenderness Extremities: No Clubbing, No Cyanosis, No Edema, Normal Pulses Results 04/27/19 08:22 04/27/19 08:22 Lab Results 04/27/19 04/27/19 04/27/19 00:05 00:05 00:05 WBC 14.0 H Hgb 13.6 Hct 39.6 Plt Count 175 INR D-Dimer 1405 H Sodium 134 L Potassium 3.6 Chloride 98 Carbon Dioxide 20 L BUN 9 Creatinine 0.88 Glucose 188 H Calcium 8.9 Total Bilirubin 0.7 AST 14 ALT 11 Alkaline Phosphatase 75 Troponin I 0.18 H* B-Natriuretic Peptide 04/27/19 04/27/19 04/27/19 00:05 02:00 03:47 WBC 10.7 Hgb 12.8 L Hct 37.6 Plt Count 168 INR D-Dimer Sodium Potassium Chloride Carbon Dioxide BUN Creatinine Glucose Calcium Total Bilirubin AST ALT Alkaline Phosphatase Troponin I 0.23 H* B-Natriuretic Peptide 206 H 04/27/19 04/27/19 04/27/19 03:47 08:22 08:22 WBC 10.3 Hgb 13.2 Hct 39.2 Plt Count 186 INR 1.5 D-Dimer Sodium 136 Potassium 3.1 L Chloride 103 Carbon Dioxide 26 BUN 9 Creatinine 0.83 Glucose 189 H Calcium 8.8 Total Bilirubin AST ALT Alkaline Phosphatase Troponin I B-Natriuretic Peptide 04/27/19 08:22 WBC Hgb Hct Plt Count INR D-Dimer Sodium Potassium Chloride Carbon Dioxide BUN Creatinine Glucose Calcium Total Bilirubin AST ALT Alkaline Phosphatase Troponin I 0.40 H* B-Natriuretic Peptide - Imaging and Cardiology Echo: pending - EKG Interpretation EKG results cardiology: personally reviewed Consult Discharge Plan - Plan Referrals: Nick Banks MD [Primary Care Provider] - <TanvircydneyHien - Last Filed: 04/27/19 12:35> Date of Encounter: 04/27/19 - Attending Attestation I examined this patient and my medical decision-making was reviewed with the [employer]. I agree with the documented findings, disposition and treatment plan as described. Mr. Bhatti presents with COPD exacerbation. Troponin noted to be elevated. ECG without acute findings. CT negative for PE or dissection. AAOX3 in NAD during time of exam. Conversational dyspnea with head of bed elevated. Diminished air entry on lung exam, no appreciable cardiac murmur No LE edema Labs show troponin 0.40, normal renal function, Hgb normal TTE pending. Impression/Plan: 1. NSTEMI: Patient presents with dyspnea and elevated troponin. Has risk factors for CAD. Discussed and recommended pursuing LHC. The R/B/A of the procedure were discussed with the patient and . Patient expressed understanding and has decided to proceed. Recommend proceeding once pulmonary status has improved. He has no active chest pain. Patient will need to lay flat for procedure. Continue heparin, asa, statin. Consider addition of low do se BB with careful consideration for COPD. 2. PAF: PAF observed on ECG during hospital stay. Now in NSR. Low dose BB to be started. Patient agrees with full AC once LHC has been completed. Further recommendations pending hospital course. Assessment and Plan Discussion w patient/family: The assessment and plan as outlined above was discussed with the patient and/or family members who expressed understanding and agreement. All questions were answered. Thank you for involving us in the care of your patient. Please call with any questions. History of Present Illness History of present illness: Mr. Bhatti is a 68 year old male All Systems Review: The remainder of the systems were reviewed and are negative Physical Examination Vital Signs, Last 4 Hours Temp Pulse Resp BP Pulse Ox 04/27/19 11:37 97.9 F 72 18 146/77 93 04/27/19 11:12 20 92 Results 04/27/19 08:22 04/27/19 08:22 Lab Results 04/27/19 04/27/19 04/27/19 00:05 00:05 00:05 WBC 14.0 H Hgb 13.6 Hct 39.6 Plt Count 175 INR D-Dimer 1405 H Sodium 134 L Potassium 3.6 Chloride 98 Carbon Dioxide 20 L BUN 9 Creatinine 0.88 Glucose 188 H Calcium 8.9 Total Bilirubin 0.7 AST 14 ALT 11 Alkaline Phosphatase 75 Troponin I 0.18 H* B-Natriuretic Peptide 04/27/19 04/27/19 04/27/19 00:05 02:00 03:47 WBC 10.7 Hgb 12.8 L Hct 37.6 Plt Count 168 INR D-Dimer Sodium Potassium Chloride Carbon Dioxide BUN Creatinine Glucose Calcium Total Bilirubin AST ALT Alkaline Phosphatase Troponin I 0.23 H* B-Natriuretic Peptide 206 H 04/27/19 04/27/19 04/27/19 03:47 08:22 08:22 WBC 10.3 Hgb 13.2 Hct 39.2 Plt Count 186 INR 1.5 D-Dimer Sodium 136 Potassium 3.1 L Chloride 103 Carbon Dioxide 26 BUN 9 Creatinine 0.83 Glucose 189 H Calcium 8.8 Total Bilirubin AST ALT Alkaline Phosphatase Troponin I B-Natriuretic Peptide 04/27/19 08:22 WBC Hgb Hct Plt Count INR D-Dimer Sodium Potassium Chloride Carbon Dioxide BUN Creatinine Glucose Calcium Total Bilirubin AST ALT Alkaline Phosphatase Troponin I 0.40 H* B-Natriuretic Peptide
[2019-04-27] MEDS: Ipratropium/Albuterol Neb 3 ML IH SCH ×3 (11:21→22:38)
--- NOTE | 2019-04-27 13:23 | Event Note ---
Date of Encounter: 04/27/19 Time of Encounter: 13:22 I have seen and evaluated the patient at bedside. H&P reviewed. electrolyte replaced. patient hemodynamically stable. patient educated about the importance of smoking cessation. help offered. will continue to follow.
--- NOTE | 2019-04-27 17:25 | Electrocardiograph Report ---
[address] [place], [place] [address] Test Date: 2019-04-27 Pat Name: Emerson Sumner Department: [id number] Room: 2A Gender: M Senior Web Developer: : 1950 Requested By: Piyush Harris Order Number: [id number] Reading MD: Hien Hernandez Measurements Intervals [place] Rate: 135 P: [place]: QRS: 95 QRSD: 90 T: 49 QT: 288 QTc: 432 Interpretive Statements Atrial fibrillation Right axis deviation Electronically Signed On 04-27-2019 17:23:46 EDT by Hien Hernandez
[2019-04-27] MEDS: *HR* Heparin 5,000 UNIT/ML VIAL IVP PRN (20:37)
[2019-04-28] MEDS: MethylPREDNISolone 40 MG/ML VIAL IVP SCH ×4 (00:41→17:22)
[2019-04-28] MEDS: Insulin LISPRO 300 UNITS/3 ML VIAL SQ SCH ×4 (00:43→16:29)
[2019-04-28] MEDS: Ipratropium/Albuterol Neb 3 ML IH SCH ×4 (04:17→23:27)
[2019-04-28] MEDS: *HR* Heparin 5,000 UNIT/ML VIAL IVP PRN ×2 (05:03→17:29)
[2019-04-28] MEDS: Heparin 25,000 UNIT/250 ML D5W 25,000 UNIT/250 ML IV.SOLN IVC SCH (05:08)
[2019-04-28] MEDS ORDERED: Azithromycin 500 MG in D5% in Water 250 ML IVPB SCH (06:00)
[2019-04-28 07:51] LABS: BUN/Creatinine Ratio 27 (6-26); Blood Urea Nitrogen 21 mg/dL (8-23); Calcium 8.9 mg/dL (8.6-10.3); Carbon Dioxide 26 mEq/L (23-29); Chloride 103 mEq/L (98-107); Glucose 140 mg/dL (70-105); Magnesium 2.6 mg/dL (1.6-2.6); Osmolality,Calculated 297 (280-300); Phosphorous 3.1 mg/dL (2.7-4.5); Potassium 3.8 mEq/L (3.5-5.1); Sodium 141 mEq/L (136-145); eGFR For African Americans > 60 (> 60); eGFR For Non-African Americans > 60 (> 60)
[2019-04-28 09:23] LABS: Troponin I 0.84 ng/mL (< 0.04)
[2019-04-28] MEDS: cefTRIAXone 1,000 MG in Water for inj. (sterile) 20 ML 10 ML IVP SCH (09:24)
[2019-04-28] MEDS: Aspirin 81 MG TAB.CHEW PO SCH (09:24)
--- NOTE | 2019-04-28 11:21 | Cardiology Progress Note ---
Date of Encounter: 04/28/19 Time of Encounter: 08:30 Assessment and Plan (1) Elevated troponin Current Visit: Yes Status: Acute Troponin elevation, 0.18, 0.23, 0.40, 0.86 EKG shows Sr with no acute ST changes. CTA chest negative for PE or dissection. Noted to have inflammatory changes, lung nodules and lymphadenopathy. Atherosclerosis noted. TTE- EF 60-65%, no significant valvular disease. No prior history of CAD. Cardiac risk factors include extensive family history of [place]/CAD at young age in multiple siblings, tobacco abuse, HTN, and HLD. [facility] is recommended for ischemic evaluation once patient improves from respiratory standpoint. C R/B/A reviewed with patient and and he agrees to proceed once able. Continues to have labored breathing and wheezes today. Will re-evaluate tomorrow. Continue heparin gtt. Asa, statin, bb. (2) Atrial fibrillation Current Visit: Yes Status: Acute Atrial fibrillation with RVR during stay and documented with EKG. Now SR to sinus tachycardia. Avg HR 86 bpm. Patient given cardizem bolus. IV gtt ordered but is now off. Continue bb. On heparin gtt. I discussed need for possible radio program director AC with coumadin vs NOAC with patient. He agrees to AC. Further recs pending hospital course. Qualifiers: Atrial fibrillation type: paroxysmal Qualified Code(s): I48.0 - Paroxysmal atrial fibrillation Discussion w patient/family: The assessment and plan as outlined above was discussed with the patient and/or family members who expressed understanding and agreement. All questions were answered. Thank you for involving us in the care of your patient. Please call with any questions. Subjective Principal diagnosis: NSTEMI, PNA Interval history: Mr. Bhatti states he is feeling better. Noted to have labored respirations and wheezing. Denies chest pain. Objective Vital Signs, Last 4 Hours Temp Pulse Resp BP Pulse Ox 04/28/19 11:07 98.8 F 87 18 112/68 93 04/28/19 09:39 92 04/28/19 07:27 99.1 F 93 18 112/68 92 General: Conversant, No Apparent Distress HEENT: Atraumatic, Normocephaly, Mucus Membranes Moist Neck: No JVD, Normal carotid pulses Cardiac: Reg Rate and Rhythm, Normal S1 and S2, No Murmur Lungs: Other (Respirations labored. Improved airmovement, course wheezes.) Neuro: Alert and responsive, No focal deficits noted Abdomen: Soft, Non-Tender Skin: No rashes noted on visualized skin Musculoskeletal: No Chest Wall Tenderness Extremities: No Clubbing, No Cyanosis, No Edema, Normal Pulses Results 04/27/19 08:22 04/28/19 04:27 Lab Results 04/28/19 04:27 Sodium 141 Potassium 3.8 Chloride 103 Carbon Dioxide 26 BUN 21 Creatinine 0.79 Glucose 140 H Calcium 8.9 Magnesium 2.6 Troponin I 0.84 H* - Imaging and Cardiology Echo: report reviewed Cardiac cath: pending - EKG Interpretation EKG results cardiology: personally reviewed Consult Discharge Plan - Plan Referrals: Nick Banks MD [Primary Care Provider] -
--- NOTE | 2019-04-28 13:23 | Internal Med Progress Note ---
Hospitalist Progress Note - Encounter Date of Encounter: 04/28/19 Time of Encounter: 13:20 - Subjective Interval History: I have seen and evaluated the patient at bedside. patient reports improvement in his breathing. denies chest pain, nausea or vomiting. denies abdominal pain - Exam Vitals: Temp Pulse Resp BP Pulse Ox 98.8 F 87 18 112/68 93 04/28/19 11:07 04/28/19 11:07 04/28/19 11:07 04/28/19 11:07 04/28/19 11:07 Exam: Vitals: Reviewed General: Alert and oriented x4. In mild distress but improved from yesterday Cardiovascular: RRR, normal S1 & S2, no rubs, murmurs or gallops. Lungs: decreased breath sounds b/l, minimal wheezes b/l, no crackles. Abdomen: Soft, non-tender, no rigidity. Extremities: No edema Neurological: Normal cognition and motor skills. Rest of the physical exam is non contributory - Assessment and Plan (1) Acute exacerbation of chronic obstructive airways disease Current Visit: Yes Status: Acute Assessment and Plan: minimal scattered b/l wheezing. continue bronchodilators and IV steroids. on empiric IV antibiotics incentive spirometry (2) Elevated troponin Current Visit: Yes Status: Acute Assessment and Plan: patient on a heparin drip, chest pain free. continue bb and statin. scheduled for [facility] tomorrow. cardiology recommendations appreciated. (3) Pneumonia Current Visit: Yes Status: Acute Assessment and Plan: Sputum culture and Gram stain ordered. legionella and strep pneumonia ordered. continue azithromycin and ceftriaxone. A repeat x-ray in 4 weeks is recommended to confirm resolution of consolidation. If the consolidation persists after antibiotic therapy, then other differentials such as inflammatory non-infectious and neoplastic etiologies should be included in the differentials. (4) Lung nodule Current Visit: Yes Status: Chronic Assessment and Plan: patient recommended and outpatient Pulmonology follow up. (5) Atrial fibrillation Current Visit: Yes Status: Acute Assessment and Plan: Rate control and beta shiv. Continue heparin drip. DVT Prophylaxis: patient is on a heparin drip. Intermittent pneumatic compression - Summary of Assessment and Plan Summary of Assessment and Plan: patient to remain in the due to elevated trop, scheduled for [facility] tomorrow. - Time Spent with Patient Total time spent is greater than 50% in coordination of care (as documented) at patient's floor/unit and/or counseling patient: Greater than 35 minutes (40) Plan of Care Discussed with: patient (and the nurse.) Internal Medicine: Result - Labs CBC & Chem 7: 04/27/19 08:22 04/28/19 04:27 Labs: BMP 04/28/19 04:27 Sodium 141 Potassium 3.8 Chloride 103 Carbon Dioxide 26 BUN 21 Creatinine 0.79 Glucose 140 H Calcium 8.9 Cardiac Enzymes 04/28/19 Range/Units 04:27 Troponin I 0.84 H* (< 0.04) ng/mL - ABG Interpretation ABG results: PT/INR, D-dimer PT 16.4 Seconds (9.4-12.1) H 04/27/19 03:47 1405 ng/mLFEU (0-500) H 04/27/19 00:05 - Impressions Impressions Abdomen/Pelvis CTA 04/27/19 00:50 IMPRESSION: No evidence for aortic aneurysm or dissection. Central pulmonary arteries appear patent without evidence for pulmonary embolism. Diffuse tree-in-bud type opacities, right more than left. Findings are nonspecific and could reflect infectious/inflammatory process. Spiculated cavitary nodule to right upper lobe measuring 1.2 x 1.1 cm along with an irregular pulmonary nodule to the right lower lobe measuring 8 x 7 mm. Findings could potentially relate to infectious/inflammatory process above, but neoplastic etiology must be excluded. Recommend further evaluation with PET-CT versus soft tissue sampling versus close interval follow-up with repeat CT chest in three months. Mediastinal and bilateral hilar lymphadenopathy, nonspecific. This may be reactive, given the other findings metastatic disease is not excluded. Recommend attention on follow-up. No acute or suspicious abdominal or pelvic abnormality. Atherosclerosis to include coronary artery disease. D/ / 04/27/2019 07:11:56 Brenden Hartley MD / jessica Interpreting Provider: Brenden Hartley MD Chest CTA 04/27/19 00:50 IMPRESSION: No evidence for aortic aneurysm or dissection. Central pulmonary arteries appear patent without evidence for pulmonary embolism. Diffuse tree-in-bud type opacities, right more than left. Findings are nonspecific and could reflect infectious/inflammatory process. Spiculated cavitary nodule to right upper lobe measuring 1.2 x 1.1 cm along with an irregular pulmonary nodule to the right lower lobe measuring 8 x 7 mm. Findings could potentially relate to infectious/inflammatory process above, but neoplastic etiology must be excluded. Recommend further evaluation with PET-CT versus soft tissue sampling versus close interval follow-up with repeat CT chest in three months. Mediastinal and bilateral hilar lymphadenopathy, nonspecific. This may be reactive, given the other findings metastatic disease is not excluded. Recommend attention on follow-up. No acute or suspicious abdominal or pelvic abnormality. Atherosclerosis to include coronary artery disease. D/ / 04/27/2019 07:11:56 Brenden Hartley MD / jessica Interpreting Provider: Brenden Hartley MD Consult Discharge Plan - Plan Referrals: Nick Banks MD [Primary Care Provider] - (3) Pneumonia Qualifiers: Pneumonia type: due to unspecified organism Laterality: bilateral Lung location: unspecified part of lung Qualified Code(s): J18.9 - Pneumonia, u nspecified organism (5) Atrial fibrillation Qualifiers: Atrial fibrillation type: paroxysmal Qualified Code(s): I48.0 - Paroxysmal atrial fibrillation
[2019-04-29] MEDS: Insulin LISPRO 300 UNITS/3 ML VIAL SQ SCH ×4 (00:31→17:17)
[2019-04-29] MEDS: Heparin 25,000 UNIT/250 ML D5W 25,000 UNIT/250 ML IV.SOLN IVC SCH (01:19)
[2019-04-29] MEDS: Ipratropium/Albuterol Neb 3 ML IH SCH ×4 (03:44→23:00)
[2019-04-29] MEDS: MethylPREDNISolone 40 MG/ML VIAL IVP SCH ×2 (06:10→17:18)
[2019-04-29] MEDS: Aspirin 81 MG TAB.CHEW PO SCH (09:28)
[2019-04-29] MEDS: Azithromycin 250 MG TABLET PO SCH (09:28)
[2019-04-29] MEDS: cefTRIAXone 1,000 MG in Water for inj. (sterile) 20 ML 10 ML IVP SCH (09:29)
--- NOTE | 2019-04-29 09:52 | Internal Med Progress Note ---
Hospitalist Progress Note - Encounter Date of Encounter: 04/29/19 Time of Encounter: 09:54 - Subjective Interval History: no acute events. Patient SOB improved. Denies Chest pain, fevers/chills, n/v. - Exam Vitals: Temp Pulse Resp BP Pulse Ox 98.8 F 77 16 112/65 93 04/29/19 07:04 04/29/19 07:04 04/29/19 07:04 04/29/19 07:04 04/29/19 07:04 Exam: General: Alert and oriented No acute distress Head: NC/AT ENT: MMM Cardiovascular: RRR, normal S1 & S2, no rubs, murmurs or gallops. Lungs: decreased breath sounds, + end expiratory wheezing bilaterally Abdomen: Soft, non-tender, no rigidity. Extremities: No edema Neurological: Normal cognition and motor skills. - Assessment and Plan (1) Acute exacerbation of chronic obstructive airways disease Current Visit: Yes Status: Acute Assessment and Plan: minimal scattered b/l wheezing. continue bronchodilators and IV steroids. Taper as tolerated Rocephin/Azithromycin incentive spirometry Wean O2 (2) Elevated troponin Current Visit: Yes Status: Acute Assessment and Plan: patient on a heparin drip, chest pain free. continue bb and statin. [facility] planned for today. (3) Pneumonia Current Visit: Yes Status: Acute Assessment and Plan: Sputum culture and Gram stain ordered. legionella and strep pneumonia ordered. continue azithromycin and ceftriaxone. Follow-up CXR in 4 weeks as outpatient. (4) Lung nodule Current Visit: Yes Status: Chronic Assessment and Plan: was recommended outpatient Pulmonology follow up. (5) Atrial fibrillation Current Visit: Yes Status: Acute Assessment and Plan: Rate controlled currently on metoprolol. Continue heparin drip, transition to PO anticoagulation when able.. (6) Acute respiratory failure with hypoxia Current Visit: Yes Status: Acute Assessment and Plan: Sexondary to COPD exacerbation from pneumonia. Continue steroids, nebs, antibiotics. Wean O2 once patient returns from [facility]. - Time Spent with Patient Total time spent is greater than 50% in coordination of care (as documented) at patient's floor/unit and/or counseling patient: Internal Medicine: Result - Labs CBC & Chem 7: 04/27/19 08:22 04/28/19 04:27 - ABG Interpretation ABG results: PT/INR, D-dimer PT 16.4 Seconds (9.4-12.1) H 04/27/19 03:47 1405 ng/mLFEU (0-500) H 04/27/19 00:05 Consult Discharge Plan - Plan Referrals: Nick Banks MD [Primary Care Provider] - _ (3) Pneumonia Qualifiers: Pneumonia type: due to unspecified organism Laterality: bilateral Lung location: unspecified part of lung Qualified Code(s): J18.9 - Pneumonia, uns pecified organism (5) Atrial fibrillation Qualifiers: Atrial fibrillation type: paroxysmal Qualified Code(s): I48.0 - Paroxysmal atrial fibrillation
[2019-04-29 11:33] LABS: Hematocrit 36.2 % (37.5-50.1); Mean Corpuscular HGB Conc 33.1 g/dL (31.6-35.5); Mean Corpuscular Hemoglobin 30.5 pg (28.0-33.3); Mean Corpuscular Volume 91.9 fL (83.0-100.0); Mean Platelet Volume 10.6 fL (9.4-12.4); Platelet Count 236 K/mcL (140-400); Red Blood Count 3.94 M/mcL (4.19-5.50); Red Cell Distribution Width 13.7 % (11.5-14.5); White Blood Count 12.7 K/mcL (4.3-11.1)
[2019-04-29 11:52] LABS: BUN/Creatinine Ratio 31 (6-26); Blood Urea Nitrogen 26 mg/dL (8-23); Calcium 8.6 mg/dL (8.6-10.3); Carbon Dioxide 29 mEq/L (23-29); Chloride 103 mEq/L (98-107); Glucose 144 mg/dL (70-105); Osmolality,Calculated 295 (280-300); Sodium 139 mEq/L (136-145); eGFR For African Americans > 60 (> 60); eGFR For Non-African Americans > 60 (> 60)
[2019-04-29 12:07] LABS: Lymphocytes # 0.8 K/mcL (0.6-4.6); Monocytes # 0.1 K/mcL (0.0-1.3); Neutrophils # 11.8 K/mcL (1.6-8.9)
[2019-04-29 12:08] LABS: Platelet Estimate Normal (Normal); Reactive Lymphocytes Present (Not Present)
--- NOTE | 2019-04-29 13:01 | Event Note ---
Date of Encounter: 04/29/19 Time of Encounter: 10:00 - Cardiology Event Note PLan for LHC for NSTEMI. Patient able to tolerate laying flat today, respiratory status improved. Risks versus benefits of LHC explained to patient and family. Patient states understanding and agreeable to proceed. Further recs pending LHC.
[2019-04-29] MEDS ORDERED: ISOVUE-370 200 ML INFUS..BTL ONE (14:21)
[2019-04-29] MEDS ORDERED: Heparin 1,000 UNITS/500 mL 500 ML ONE (14:21)
[2019-04-29] MEDS ORDERED: *HR* Heparin 10,000 UNIT/10 ML VIAL ONE (14:21)
[2019-04-29] MEDS ORDERED: 0.9 % Sodium Chloride 1,000 ML ONE ×2 (14:21)
[2019-04-29] MEDS ORDERED: Nitroglycerin 1,000 MCG/10 ML VIAL IV ONE (14:21)
[2019-04-29] MEDS ORDERED: *HR* Midazolam HCl 2 MG/2 ML VIAL ONE (14:41)
[2019-04-29] MEDS ORDERED: *HR* FentaNYL (PF) 100 MCG/2 ML VIAL ONE (14:41)
--- NOTE | 2019-04-29 14:48 | Pre-Sedation Evaluation ---
Pre-sedation evaluation - Pre-sedation checklist Date of procedure: 04/29/19 Procedure: [facility] Recent Vitals: Last Vital Signs Temp 97.6 F 04/29/19 11:09 Pulse 60 04/29/19 11:09 Resp 18 04/29/19 11:09 BP 130/91 04/29/19 11:09 Pulse Ox 100 04/29/19 11:09 H&P (including ROS) documented in medical record: Yes Previous reaction to sedatives/anesthetics: No Dietary Status: NPO after Midnight Airway Assessment: Patient can open mouth completely, TMJ function normal, Micrognathia (under-bite, receding chin) absent, Neck with adequate range of mo tion Dentition: No loose teeth or bridges Possible difficult airway: No ASA Classification *see protocol: CLASS II-Mild systemic disease Plan of Care: Pt appropriate candidate for procedure/moderate/conscious sedation, Risks/benefits of procedure/sedation discussed w/ patient/family Cardiac Registry (Cardio Only) - Functional Capacity Functional Capacity: < 4 METS - Clincal Frailty Scale Clinical Frailty Scale: Vulnerable
--- NOTE | 2019-04-29 15:22 | Invasive Diagnostic Lab Proc ---
Name: Emerson Bhatti Date of Study: 04/29/2019 Date: 1950 Ht: 64.0in Medical Record#: [id number] Age: 68 Wt: 140.21lb Gender: Male BSA: 1.68 Order #: [id number] BMI: 24.06 Physicians Procedure Physician: Marion Briscoe MD, [facility] Referring MD: Referring MD: Staff Name Position Time In Ezekiel Pedroza RT (R) Monitor 02:33 PM Wendy Pedroza RT (R) Scrub 02:33 PM Ryan Garcia RN Merchandise Examiner 02:33 PM Indications Indication Non-Stemi Procedures Performed Procedure L HRT ARTERY/VENTRICLE ANGIO Pre-Procedure Checklist Informed consent is complete signed and on chart. H&P is on chart. ID band is on and ID verified with patient. Patient NPO for procedure The procedure was described for the patient and questions were answered. Blood Pressure: 130/91 ECG is on chart. Rhythm: NSR Plan of Care Patient will tolerate the procedure without complications. Adequate level of comfort will be maintained. Hemodynamics will remain stable Patient will recover from procedure without complications. Respiratory function will be maintained. Cardiac rhythm will remain stable. Patient temperature will be maintained. Patient and/or family have verbalized understanding of the procedure. Patient Education Chief Complaint/Reason for Test: Cardiac Cath Developmental Category: Geriatric (65+ years) Developmentally Appropriate for Age: Yes Learning Barriers: None Education Needs: Procedure Education Method: Verbal Information Taught: Cardiac Cath Educational Evaluation: Able to repeat information Intravenous Access Time IV Size Location DC'd Fluid/Drip Rate Units RN 02:32 PM 18g 1 1/4" Patent On Arrival Rt Arm 02:32 PM 20g 1 1/4" Patent On Arrival Lt Arm 0.9NaCl 25 ml/hr Ryan Garcia RN Allergies NKDA Vital Signs Time BP (mmHg) HR (bpm) O2 Sat. RR (bpm) LOC 02:31 PM 130 / 91 60 100 % 18 5 = Fully awake and oriented or at pre-proc level 02:31 PM / % 4 = Oriented but drowsy 02:47 PM / % 4 = Oriented but drowsy 02:41 PM 149 / 83 85 87 % 24 02:46 PM 141 / 77 83 93 % 19 02:51 PM 120 / 72 77 88 % 18 02:56 PM 117 / 68 86 88 % 24 03:01 PM 116 / 68 81 92 % 26 Procedural Medications Time Medication Dose Units Method Given By 02:38 PM Oxygen 2 L/min nasal cannula Ryan Garcia RN 02:44 PM Versed 2 mg Intravenous Ryan Garcia RN 02:44 PM Fentanyl 50 mcg Intravenous Ryan Garcia RN 02:51 PM Lidocaine 2% 16 ml Subcutaneous Marion Briscoe MD, FACC 02:54 PM Oxygen 4 L/min nasal cannula Ryan Garcia RN ASA Classification: CLASS II- Mild systemic disease (i.e. well-controlled diabetes, hypertension, asthma, cigarette smoking) Elysia Score Preprocedure Postprocedure Activity 2- Moves 4 extremities sustained head lift Activity 2- Moves 4 extremities sustained head lift Circulation 2- SBP +/= 20 points of pre-anesthetic level Circulation 2- SBP +/= 20 points of pre-anesthetic level Consciousness 2- Awake and alert oriented x 3 Consciousness 2- Awake and alert oriented x 3 O2 Saturation 2- Able to maintain O2 satruation of 92% on room air O2 Saturation 2- Able to maintain O2 satruation of 92% on room air Respiratory 2- Able to deep breathe and cough well Respiratory 2- Able to deep breathe and cough well Total Score 10 Total Score 10 Contrast Agent: Isovue Diagnostic Contrast: 61 ml Total Contrast: 61 ml Fluoro Dose: 8 mGy Procedure Log Time Note Enter By 02:30 PM CathStat 02:31 PM Pt arrived to carpenter/labor 2 at 14:31 02:31 PM Time: 14:31 Patient comfortable and pain free: Yes 02:31 PM Time: 14:31LOC: 5 = Fully awake and oriented or at pre-proc level [email or web address] 02:33 PM Ezekiel Pedroza RT (R) Position: Monitor Time in: 14:33 [email or web address] 02:33 PM Wendy Pedroza RT (R) Position: Scrub Time in: 14:33 [email or web address] 02:33 PM Ryan Garcia RN Position: Merchandise Examiner Time in: 14:33 [email or web address] 02:33 PM Patient charges- Angio tray pack, Navilyst 3mm J, Pulse Oximetry and ACIST tubing and transducer [email or web address] 02:34 PM Clinical Presentation: Non-STEMI [email or web address] 02:37 PM Case Delayed No [email or web address] 02:37 PM Physician arrived 14:37 [email or web address] 02:37 PM Meet and [place] completed [email or web address] 02:37 PM Sign in performed according to hospital policy. Informed consent was obtained. [email or web address] 02:37 PM Procedure start 14:37 [email or web address] 02:37 PM ASA Class CLASS II- Mild systemic disease (i.e. well-controlled diabetes, hypertension, asthma, cigarette smoking) [email or web address] 02:38 PM Time: 14:38 Oxygen on at 2 L/min per nasal cannula by Ryan Garcia RN [email or web address] 02:40 PM Reference ECG taken 02:40 PM Recorded ECG: HR=86 Condition=Condition 1 02:40 PM Vitals capture started with the following parameters, Patient=Adult, Interval=5 min, Initial Tjlewupe=543 mmHg, Deflation Rate=3 mmHg, Cuff placed on Right Arm 02:41 PM Hair removed from procedure site in procedure lab using clippers. Bilateral groin prepped with Chloraprep by Ryan Garcia RN, then patient was draped. Skin intact. [email or web address] 02:41 PM HR=85 bpm, PJBX=620/83 mmhg, SpO2=87.0 %, Resp=24 B/min 02:42 PM Pressure channel 1 zero failed. 02:44 PM Time: 14:44 Versed 2 mg Intravenous Given by Ryan Garcia RN [email or web address] 02:44 PM Time: 14:44 Fentanyl 50 mcg Intravenous Given by Ryan Garcia RN [email or web address] 02:46 PM Pressure channel 1 zeroed. 02:46 PM HR=83 bpm, OXFV=411/77 mmhg, SpO2=93.0 %, Resp=19 B/min 02:47 PM Time: 14:31LOC: 4 = Oriented but drowsy [email or web address] 02:47 PM Time: 14:31 Patient comfortable and pain free: Yes [email or web address] 02:51 PM HR=77 bpm, IXFP=281/72 mmhg, SpO2=88.0 %, Resp=18 B/min 02:51 PM Time out was performed according to hospital policy. Conscious sedation and anesthesia was achieved (see medication log with in this report above) [email or web address] 02:52 PM Time: 14:51 16 ml Lidocaine 2% to right groin Subcutaneous Given by Marion Briscoe MD, [facility] [email or web address] 02:53 PM Access obtained by percutaneous puncture. 5Fr 10cm Terumo Hopwood sheath placed in right Femoral artery. [id number] 02:53 PM 0.035 145cm Navilyst 3mmJ wire [id number] 02:53 PM 5Fr FL 4 catheter inserted over the wire [facility] 02:54 PM LCA angiography performed in multiple views. 02:54 PM Recorded Pressure: Ao, HR=75, Condition=Condition 1 (Aorta) Ao 97/54/72 02:54 PM Time: 14:54 Oxygen on at 4 L/min per nasal cannula by Ryan Garcia RN 02:55 PM Catheter removed 02:55 PM 5Fr FR 4 catheter inserted over the wire [facility] 02:56 PM RCA angiography performed in multiple views. 02:56 PM HR=86 bpm, NUUT=832/68 mmhg, SpO2=88.0 %, Resp=24 B/min, EtCO2=20 mmHg 02:56 PM Catheter removed 02:57 PM 5Fr Pigtail catheter inserted over the wire [facility] 02:57 PM Catheter crossed the aortic valve and was selectively placed in the left ventricle. Pressures recorded on pullback for left heart catheterization. 02:57 PM Bolus angiogram of left Ventricle complete: 8 ml/sec for a total of 24 mls 02:57 PM Pressure channel 1 zeroed. 02:58 PM Recorded Pressure: LV, HR=85, Condition=Condition 1 (Left Ventricle) LV 104/-8/11 02:58 PM Recorded Pressure: LV, Ao, HR=83, Condition=Condition 1 (Left Ventricle) LV 134/45/114, (Aorta) Ao 86/31/57 02:58 PM Catheter removed 02:58 PM Bolus angiogram of right Femoral complete: 4 ml/sec for a total of 7 mls 02:59 PM Physician reviewing films 03:00 PM Arterial sheath pulled, Mynx closure device used and was Successful [id number] S/N. 03:01 PM Procedure completed at 15:01 04/29/2019 [email or web address] 03:01 PM HR=81 bpm, NMHL=244/68 mmhg, SpO2=92.0 %, Resp=26 B/min 03:01 PM Sign out completed: Radiation Dose 52.48 mGy, 7.72 Gy/cm2 Fluoro Time: 0.9 Isovue 370 - 200ml contrast 61 ml given by Marion Briscoe MD, [facility]. Complications: None. 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 Sedation minutes 31. Cardiac Rehab Consult needed: No. Confirmed administered medications: Yes [email or web address] 03:01 PM Isovue 370 - 200ml,1 Bottle(s) used. [email or web address] 03:02 PM Estimated Blood Loss: less than 20cc [email or web address] 03:02 PM Time: 14:47 Patient comfortable and pain free: Yes [email or web address] 03:02 PM Time: 14:47LOC: 4 = Oriented but drowsy [email or web address] 03:02 PM Post ECG NSR [email or web address] 03:02 PM Post Blood Pressure 116/68 [email or web address] 03:02 PM Information taught Cardiac Cath and Mynx [email or web address] 03:02 PM Education needs Procedure, Plan of Care, and Disease Process [email or web address] 03:02 PM Learning barriers :Sedated [email or web address] 03:02 PM Education Methods Verbal [email or web address] 03:03 PM Education evaluation Needs further instruction [email or web address] 03:03 PM Delay to floor No [email or web address] 03:03 PM Complications: None [email or web address] 03:03 PM Family placed in consult room. [email or web address] 03:05 PM Coronary Dominance: right [email or web address] 03:06 PM Vitals capture stopped. 03:07 PM Lesion found in Proximal RCA. Pre Stenosis: 30 Pre MUKESH Flow: [email or web address] 03:07 PM Right Coronary, Right Posterior Descending Arteries with Right Posterolateral and Acute Marginal branches with 30 % stenosis. If graft is supplying this area, 0 % stenosis [email or web address] 03:07 PM Lesion found in Mid RCA. Pre Stenosis: 30 Pre MUKESH Flow: [email or web address] 03:07 PM Lesion found in Proximal LAD. Pre Stenosis: 30 Pre MUKESH Flow: [email or web address] 03:07 PM Proximal Left Anterior Descending Coronary Artery with 30% stenosis. If graft is supplying this territory, 0 % stenosis. [email or web address] 03:07 PM Lesion found in Mid LAD. Pre Stenosis: 25 Pre MUKESH Flow: [email or web address] 03:07 PM Mid/Distal Left Anterior Descending Coronary Artery and diagonal branches with 25% stenosis. If graft is supplying this area, 0 % stenosis [email or web address] 03:07 PM Lesion found in Proximal Circumflex. Pre Stenosis: 30 Pre MUKESH Flow: [email or web address] 03:08 PM Circumflex, Obtuse Marginal, Left Posterior Descending, and Left Posterolateral Coronary Arteries with 30 % stenosis. If graft is supplying this area, 0 % stenosis [email or web address] 03:08 PM Site status No bleeding/hematoma - Rt Groin as reported by Wendy Pedroza RT (R) at 15:08 [email or web address] 03:08 PM Opsite applied [email or web address] 03:11 PM Report given to danya MASCORRO Pt taken to 2A Room #55. 15:10 [email or web address] 03:13 PM Patient out of room: 15:13 [email or web address] Complications Complication None None Hemodynamics Pressures Site Systolic/A Wave Diastolic/V Wave Mean AO 97 54 72 LV 104 -8 11 LV 134 45 114 AO 86 31 57 Post Procedure Information Blood Pressure: 116/68 mmHg Rhythm: NSR Post procedural instructions were given Closure Device Time Device Success/Fail 04/29/2019 3:00:00 PM MynxGrip Successful Site Checks Time Location Status Staff Sheath In? Note 03:08 PM Rt Groin No bleeding/hematoma Wendy Pedroza RT (R) Pulses Time Site Pre-Procedure Post-Procedure Note 04/29/2019 2:32:00 PM Bilateral radial 2+ 04/29/2019 2:32:00 PM Bilateral DP 2+ Updated by Ezekiel Pedroza RT (R) on 04/29/2019 3:14:01 PM Ezekiel Pedroza RT electronically signed on 04/29/2019 3:14:34 PM with status of Final
[2019-04-30] MEDS: Insulin LISPRO 300 UNITS/3 ML VIAL SQ SCH ×3 (01:37→11:36)
[2019-04-30] MEDS: Ipratropium/Albuterol Neb 3 ML IH SCH ×2 (03:58→10:52)
[2019-04-30] MEDS: MethylPREDNISolone 40 MG/ML VIAL IVP SCH (06:03)
[2019-04-30 09:40] LABS: Basophils % 0.2 %; Hematocrit 36.8 % (37.5-50.1); Hemoglobin 12.4 g/dL (12.9-16.9); Immature Granulocytes % 0.9 % (0-4); Lymphocytes # 0.7 K/mcL (0.6-4.6); Mean Corpuscular HGB Conc 33.7 g/dL (31.6-35.5); Mean Corpuscular Hemoglobin 31.4 pg (28.0-33.3); Mean Corpuscular Volume 93.2 fL (83.0-100.0); Mean Platelet Volume 10.3 fL (9.4-12.4); Monocytes # 0.2 K/mcL (0.0-1.3); Neutrophils # 7.8 K/mcL (1.6-8.9); Platelet Count 244 K/mcL (140-400); Red Blood Count 3.95 M/mcL (4.19-5.50); Red Cell Distribution Width 13.3 % (11.5-14.5); Segmented Neutrophils % 88.9 %; White Blood Count 8.8 K/mcL (4.3-11.1)
[2019-04-30 09:58] LABS: BUN/Creatinine Ratio 28 (6-26); Blood Urea Nitrogen 25 mg/dL (8-23); Calcium 8.7 mg/dL (8.6-10.3); Carbon Dioxide 29 mEq/L (23-29); Chloride 99 mEq/L (98-107); Glucose 185 mg/dL (70-105); Osmolality,Calculated 295 (280-300); Potassium 4.1 mEq/L (3.5-5.1); Sodium 138 mEq/L (136-145); eGFR For African Americans > 60 (> 60); eGFR For Non-African Americans > 60 (> 60)
--- NOTE | 2019-04-30 10:21 | Discharge Summary ---
- NOTES TO OUTPATIENT PROVIDER Notes to Outpatient Provider: Coumadin clinic being arranged. Monitor O2 saturations. Follow-up lung nodules, recommended on radiology read is PET-CT. Orders not resulted at time of discharge: Pending orders 04/27/19 00:36 Culture,Blood [BC] Stat 04/30/19 09:17 Complete Blood Count [HEME] AM 0400 05/01/19 04:00 BMP [Basic Metabolic Panel] AM 0400 Complete Blood Count [HEME] AM 0400 05/02/19 04:00 BMP [Basic Metabolic Panel] AM 0400 Complete Blood Count [HEME] AM 0400 05/03/19 04:00 BMP [Basic Metabolic Panel] AM 0400 Complete Blood Count [HEME] AM 0400 Date of Encounter: 04/30/19 Time of Encounter: 10:20 - Discharge Diagnosis (1) Acute exacerbation of chronic obstructive airways disease Priority: Primary Status: Acute (2) Acute respiratory failure with hypoxia Priority: Secondary Status: Acute (3) Atrial fibrillation Priority: Secondary Status: Acute Qualifiers: Atrial fibrillation type: paroxysmal Qualified Code(s): I48.0 - Paroxysmal atrial fibrillation (4) Elevated troponin Priority: Secondary Status: Acute (5) Pneumonia Priority: Secondary Status: Acute Qualifiers: Pneumonia type: due to unspecified organism Laterality: bilateral Lung location: unspecified part of lung Qualified Code(s): J18.9 - Pneumonia, unspecified organism (6) Lung nodule Priority: Secondary Status: Chronic Hospital course: Mr. Bhatti is a 68 year old male presented for 5 day history of SOB with exertion. He had cough with yellow sputum. He has a 50 pack year history of smoking. In the ED he was seen to be in atrial fibrillation with RVR, leukocytosis, and elevated troponin of 0.18 eventually elevated to 0.8 during admission.CTA of chest and abdomen/pelvis was negative for PE or dissections. It did show findings of pulmonary nodules that need follow-up PET-CT. It also s howed possible pneumonia. Patient was started on Cardizem drip and heparin drip, Rocephin/Azithromycin, and steroids. His breathing status significantly improved. He was weaning oxygen. Cardiology was consulted and performed left heart cath on 04/29/19 and tolerated procedure well. No intervention was taken. He will be discharged on coumadin for atrial fibrillation, and Augmentin/Azithromycin to complete course for pneumonia. - Time Spent with Patient Total time spent providing and/or coordinating discharge services: - Discharge Medications Prescriptions: New Aspirin 81 mg PO DAILY #30 tab.chew Amoxicillin/Clavulanate [Augmentin] 875 mg PO BIDWM #6 tablet Metoprolol [Lopressor] 12.5 mg PO BID #60 tablet predniSONE [PredniSONE] 40 mg PO DAILY #2 tablet Azithromycin [Zithromax] 500 mg PO DAILY #1 tablet Continued Simvastatin [Zocor] 20 mg PO HS Lisinopril [Zestril] 20 mg PO QAM Albuterol Sulfate [Proair Hfa] 2 inh AER Q4HR PRN PRN Reason: Wheezing Home Medications: Albuterol Sulfate [Proair Hfa] 2 inh AER Q4HR PRN 04/27/19 [History] Lisinopril [Zestril] 20 mg PO QAM 04/27/19 [History] Simvastatin [Zocor] 20 mg PO HS 04/27/19 [History] Amoxicillin/Clavulanate [Augmentin] 875 mg PO BIDWM #6 tablet 04/30/19 [Rx] Aspirin 81 mg PO DAILY #30 tab.chew 04/30/19 [Rx] Azithromycin [Zithromax] 500 mg PO DAILY #1 tablet 04/30/19 [Rx] Metoprolol [Lopressor] 12.5 mg PO BID #60 tablet 04/30/19 [Rx] predniSONE [PredniSONE] 40 mg PO DAILY #2 tablet 04/30/19 [Rx] Allergies/Adverse Reactions: Allergy/AdvReac Type Severity Reaction Status Date / Time No Known Allergies Allergy Verified 04/28/19 09:04 Date of admission: 04/27/19 13:08 Primary care physician: Nick Banks MD Consults: 04/27/19 05:23 Consult to Cardiology [CONS] Routine Comment: Consulting Provider: Cardiology Merna Reason for Consult: MAT, elevated troponin on heparin drip Call Completed: No 04/27/19 05:24 Consult to Nurse Navigator [CONS] Routine Comment: Discharging clinician: Kaley Stevenson - Constitutional Vitals: Temp Pulse Resp BP Pulse Ox 98.2 F 76 24 134/77 92 04/30/19 08:00 04/30/19 06:35 04/30/19 08:00 04/30/19 08:00 04/30/19 08:00 General appearance: Present: cooperative, A&O X 3, pleasant, no acute distress, answers questions appropriately Exam: Gen: NAD, AAOx3, ambulating in room Head: NC/AT ENT: MMM, no rhinorrhea or drainage or lymphadenopathy. CVS: irregularly irregular rhythm. Regular rate. Lungs: improved aeration of breath sounds and decreased exp wheezing. inguinal: right heart cath dressing clean, dry Ext: no edema, no cyanosis. - Patient Status Disposition: Home, Self-Care Condition: Serious Functional capacity at discharge: independent ambulation Overall status at discharge: patient is back to baseline - Discharge Instructions Follow Up With: Nick Banks MD [Primary Care Provider] - - Diet and Activity Activity: increase activity as tolerated Diet: advance to your usual diet
[2019-04-30] MEDS ORDERED: predniSONE 20 MG TABLET PO SCH (10:30)
[2019-04-30 10:39] LABS: Platelet Estimate Normal (Normal)
[2019-04-30] MEDS: Azithromycin 250 MG TABLET PO SCH (10:39)
[2019-04-30] MEDS: Aspirin 81 MG TAB.CHEW PO SCH (10:39)
[2019-04-30 10:59] VITALS: BP 145/80
--- NOTE | 2019-04-30 11:42 | Electrocardiograph Report ---
[address] [address] Test Date: 2019-04-27 Pat Name: Emerson [place] Department: EXAM21 Room: 2A55 Gender: M Electrical Contractor: : 1950 Requested By: Eladio Schwartz Order Number: [id number] Reading MD: Dipak Briscoe Measurements Intervals [place] Rate: 103 P: 70 OK: 155 QRS: 103 QRSD: 89 T: 46 QT: 339 QTc: 444 Interpretive Statements Sinus tachycardia Right axis deviation Electronically Signed On 04-30-2019 11:40:16 EDT by Dipak Briscoe
--- NOTE | 2019-04-30 11:53 | Event Note ---
Date of Encounter: 04/30/19 Time of Encounter: 09:00 - Cardiology Event Note LHC reviewed with mild, non-obstructive CAD. Right groin access site without ecchymosis or hemtoma. Right groin access site management education reviewed with patient, [email or web address]. Regarding anticoagulation, Nisharelto ley kilo ck noted to be $419/month. Discussed coumadin with patient, patient agreeable to start. Will start coumadin and send [facility] referral. Cardiology will follow INRs until seen by [facility]. Cardiology will sign off, will arrange outpatient follow up.
[2019-04-30] MEDS ORDERED: Warfarin perPT PO PRN (18:00)
[2019-04-30] MEDS ORDERED: *HR* Warfarin 4 MG TABLET PO ONE (18:00)
== END 2019-04-30 15:22 | disposition home or self-care (01) | DRG 286 ==
LOC: 2ANU 23:51 → EMEROOARM 23:51 → SUATTDRO 04-27 03:51 → 2ANU 04-27 05:47 → SUATTDRO 04-27 13:08
PROVIDERS: ADMIT Internal Medicine; ATTEND Student in an Organized Health Care Education/Training Program

== ENCOUNTER 2019-08-18 08:48 | Inpatient (IN) ==
[2019-08-18] MEDS ORDERED: *HR* FentaNYL (PF) 100 MCG/2 ML VIAL IVP ONE ×2 (08:50→13:31)
[2019-08-18] MEDS ORDERED: *HR* Midazolam HCl 2 MG/2 ML VIAL IVP ONE ×2 (08:50→13:31)
[2019-08-18 09:23] LABS: Basophils # 0.1 K/mcL (0.0-0.2); Basophils % 0.8 %; Eosinophils # 0.1 K/mcL (0.0-0.6); Hematocrit 47.3 % (37.5-50.1); Hemoglobin 15.8 g/dL (12.9-16.9); Immature Granulocytes % 0.3 % (0-4); Lymphocytes # 2.1 K/mcL (0.6-4.6); Lymphocytes % 34.8 %; Mean Corpuscular HGB Conc 33.4 g/dL (31.6-35.5); Mean Corpuscular Hemoglobin 31.6 pg (28.0-33.3); Mean Corpuscular Volume 94.6 fL (83.0-100.0); Mean Platelet Volume 9.5 fL (9.4-12.4); Monocytes # 0.6 K/mcL (0.0-1.3); Monocytes % 10.4 %; Neutrophils # 3.1 K/mcL (1.6-8.9); Platelet Count 179 K/mcL (140-400); Segmented Neutrophils % 51.7 %
[2019-08-18 09:31] LABS: Prothrombin Time 11.8 Seconds (9.4-12.1)
[2019-08-18] MEDS ORDERED: 0.9 % Sodium Chloride 500 ML ONE ×3 (09:43→13:25)
[2019-08-18] MEDS ORDERED: *HR* FentaNYL (PF) 100 MCG/2 ML VIAL ONE (13:24)
[2019-08-18] MEDS ORDERED: *HR* Midazolam HCl 2 MG/2 ML VIAL ONE (13:25)
[2019-08-18] MEDS ORDERED: Acetaminophen 325 MG TABLET PO PRN (13:31)
[2019-08-18] MEDS ORDERED: Naloxone 0.4 MG/ML INJ IVP PRN (13:31)
[2019-08-18] MEDS ORDERED: Ondansetron 4 MG/2 ML VIAL IVP PRN (13:46)
[2019-08-18] MEDS: *HR* HYDROcodone/Acet 5/325 mg TABLET PO PRN (14:35)
[2019-08-18] MEDS: Morphine Sulfate 2 MG/ML SYRINGE IVP PRN ×2 (15:37→20:25)
[2019-08-18] MEDS ORDERED: Warfarin perPT PO PRN (18:00)
[2019-08-18] MEDS: *HR* Heparin 5,000 UNIT/ML VIAL SQ SCH (18:43)
[2019-08-19 00:41] LABS: Basophils % 0.6 %; Eosinophils # 0.2 K/mcL (0.0-0.6); Eosinophils % 2.2 %; Hematocrit 41.9 % (37.5-50.1); Hemoglobin 14.3 g/dL (12.9-16.9); Immature Granulocytes % 0.1 % (0-4); Lymphocytes # 2.5 K/mcL (0.6-4.6); Lymphocytes % 37.4 %; Mean Corpuscular HGB Conc 34.1 g/dL (31.6-35.5); Mean Corpuscular Hemoglobin 31.8 pg (28.0-33.3); Mean Corpuscular Volume 93.1 fL (83.0-100.0); Mean Platelet Volume 9.4 fL (9.4-12.4); Monocytes # 0.8 K/mcL (0.0-1.3); Monocytes % 11.1 %; Neutrophils # 3.3 K/mcL (1.6-8.9); Platelet Count 159 K/mcL (140-400); Red Cell Distribution Width 12.9 % (11.5-14.5); Segmented Neutrophils % 48.6 %; White Blood Count 6.7 K/mcL (4.3-11.1)
[2019-08-19] MEDS: Morphine Sulfate 2 MG/ML SYRINGE IVP PRN (00:57)
[2019-08-19 00:59] LABS: BUN/Creatinine Ratio 17 (6-26); Blood Urea Nitrogen 17 mg/dL (8-23); Calcium 8.3 mg/dL (8.6-10.3); Carbon Dioxide 25 mEq/L (23-29); Chloride 108 mEq/L (98-107); Glucose 99 mg/dL (70-105); Osmolality,Calculated 288 (280-300); Potassium 4.3 mEq/L (3.5-5.1); Sodium 138 mEq/L (136-145); eGFR For African Americans > 60 (> 60); eGFR For Non-African Americans > 60 (> 60)
[2019-08-19 01:00] LABS: INR 1.1; Prothrombin Time 12.7 Seconds (9.4-12.1)
[2019-08-19] MEDS: *HR* Heparin 5,000 UNIT/ML VIAL SQ SCH (05:18)
[2019-08-19] MEDS: *HR* HYDROcodone/Acet 5/325 mg TABLET PO PRN ×2 (08:59→17:01)
[2019-08-19] MEDS ORDERED: Aspirin 81 MG TAB.CHEW PO SCH (09:00)
[2019-08-19] MEDS ORDERED: Lisinopril 20 MG TABLET PO SCH (09:00)
[2019-08-19 12:20] VITALS: BP 129/73
[2019-08-19] MEDS ORDERED: *HR* Warfarin 5 MG TABLET PO ONE (18:00)
== END 2019-08-19 17:14 | disposition home or self-care (01) | DRG 200 ==
LOC: RAD 08:48 → INTOOBSV 14:20 → 2NENU 14:20
PROVIDERS: ADMIT Internal Medicine; ATTEND Internal Medicine

== ENCOUNTER 2019-09-17 07:26 | Inpatient (IN) ==
[2019-09-17] MEDS ORDERED: Acetaminophen IV 1,000 MG/100 ML INFUS..BTL ONE (07:46)
[2019-09-17] MEDS ORDERED: *HR* Vasopressin 20 UNIT/ML VIAL ONE (07:46)
[2019-09-17] MEDS ORDERED: CeFAZolin Syr 2,000MG/20 ML 2,000 MG/20 ML SYRINGE IVPB ONE (08:08)
[2019-09-17] MEDS ORDERED: Albuterol 2.5 MG/3 ML NEBULIZER IH PRN (08:08)
[2019-09-17] MEDS ORDERED: *HR* Promethazine 25 MG/ML VIAL IVP PRN (08:09)
[2019-09-17] MEDS ORDERED: Ketorolac 15 MG/ML VIAL IVP ONE (08:09)
[2019-09-17] MEDS ORDERED: *HR* HYDROmorphone (PF) 1 MG/ML SYRINGE IVP PRN (08:09)
[2019-09-17] MEDS ORDERED: Acetaminophen IV 1,000 MG/100 ML INFUS..BTL IVPB ONE (08:09)
[2019-09-17] MEDS ORDERED: *HR* OxyCODONE Immed Rel 5 MG TABLET PO PRN (08:09)
[2019-09-17] MEDS ORDERED: Ringers Solution, Lactated 1,000 ML IVC SCH ×2 (08:15)
[2019-09-17 08:55] LABS: Prothrombin Time 11.7 Seconds (9.4-12.1)
[2019-09-17] MEDS ORDERED: *HR* HYDROMORPHONE 2 MG/ML VIAL ONE (09:25)
[2019-09-17] MEDS ORDERED: Naloxone 0.4 MG/ML INJ IVP PRN (11:56)
[2019-09-17] MEDS ORDERED: Ondansetron 4 MG/2 ML VIAL IVP PRN (11:56)
[2019-09-17] MEDS: 0.9 % Sodium Chloride 1,000 ML IVC SCH (13:02)
[2019-09-17] MEDS: Ketorolac 15 MG/ML VIAL IVP SCH ×3 (13:02→23:52)
[2019-09-17] MEDS: *HR* Heparin 5,000 UNIT/ML VIAL SQ SCH ×2 (13:02→20:58)
[2019-09-17] MEDS: *HR* HYDROcodone/Acet 5/325 mg TABLET PO PRN ×2 (13:35→17:23)
[2019-09-17] MEDS: Ipratropium/Albuterol Neb 3 ML IH SCH ×4 (13:56→23:33)
[2019-09-17] MEDS: Gabapentin 300 MG CAPSULE PO SCH ×2 (14:54→20:58)
[2019-09-17] MEDS: Sennosides/Docusate Sodium TABLET PO SCH (20:58)
[2019-09-17] MEDS: Famotidine 20 MG TABLET PO SCH (20:58)
[2019-09-18 00:58] LABS: Hematocrit 38.7 % (37.5-50.1); Hemoglobin 13.2 g/dL (12.9-16.9); Mean Corpuscular HGB Conc 34.1 g/dL (31.6-35.5); Mean Corpuscular Hemoglobin 31.1 pg (28.0-33.3); Mean Corpuscular Volume 91.3 fL (83.0-100.0); Mean Platelet Volume 9.6 fL (9.4-12.4); Platelet Count 154 K/mcL (140-400); Red Blood Count 4.24 M/mcL (4.19-5.50); White Blood Count 12.8 K/mcL (4.3-11.1)
[2019-09-18 01:21] LABS: BUN/Creatinine Ratio 13 (6-26); Blood Urea Nitrogen 16 mg/dL (8-23); Calcium 8.2 mg/dL (8.6-10.3); Carbon Dioxide 25 mEq/L (23-29); Chloride 104 mEq/L (98-107); Glucose 176 mg/dL (70-105); Iron 22 mcg/dL (65-175); Magnesium 1.9 mg/dL (1.6-2.6); Osmolality,Calculated 287 (280-300); Potassium 3.9 mEq/L (3.5-5.1); Sodium 136 mEq/L (136-145); eGFR For African Americans > 60 (> 60); eGFR For Non-African Americans > 60 (> 60)
[2019-09-18 01:24] LABS: % Iron Saturation 9 % (20-55); Transferrin 172 mg/dL (203-362)
[2019-09-18] MEDS: 0.9 % Sodium Chloride 1,000 ML IVC SCH (02:54)
[2019-09-18] MEDS: Ipratropium/Albuterol Neb 3 ML IH SCH ×5 (03:36→20:31)
[2019-09-18] MEDS: *HR* HYDROcodone/Acet 7.5/325 mg TABLET PO PRN ×4 (03:44→16:05)
[2019-09-18] MEDS: Ketorolac 15 MG/ML VIAL IVP SCH ×4 (05:18→23:44)
[2019-09-18] MEDS: *HR* Heparin 5,000 UNIT/ML VIAL SQ SCH ×3 (05:19→20:13)
[2019-09-18] MEDS: Sennosides/Docusate Sodium TABLET PO SCH ×2 (08:03→20:12)
[2019-09-18] MEDS: Famotidine 20 MG TABLET PO SCH ×2 (08:04→20:12)
[2019-09-18] MEDS: Aspirin Enteric Coated 81 MG Tablet PO SCH (08:04)
[2019-09-18] MEDS: Gabapentin 300 MG CAPSULE PO SCH ×3 (08:04→20:12)
[2019-09-18] MEDS: Lisinopril 20 MG TABLET PO SCH (08:04)
[2019-09-18] MEDS ORDERED: Folic Acid 1 MG in 0.9 % Sodium Chloride 50 ML IVPB ONE (09:59)
[2019-09-18] MEDS ORDERED: Iron Sucrose Complex 400 MG in 0.9 % Sodium Chloride 250 ML IVPB ONE (09:59)
[2019-09-18] MEDS ORDERED: Thiamine (B-1) 100 MG in 0.9 % Sodium Chloride 50 ML IVPB ONE (09:59)
[2019-09-19] MEDS: Ipratropium/Albuterol Neb 3 ML IH SCH ×6 (00:16→19:57)
[2019-09-19] MEDS: *HR* Heparin 5,000 UNIT/ML VIAL SQ SCH ×3 (05:37→20:10)
[2019-09-19] MEDS: Ketorolac 15 MG/ML VIAL IVP SCH ×3 (05:37→18:36)
[2019-09-19] MEDS: Aspirin Enteric Coated 81 MG Tablet PO SCH (08:50)
[2019-09-19] MEDS: Lisinopril 20 MG TABLET PO SCH (08:50)
[2019-09-19] MEDS: Gabapentin 300 MG CAPSULE PO SCH ×3 (08:50→20:09)
[2019-09-19] MEDS: Sennosides/Docusate Sodium TABLET PO SCH ×2 (08:50→20:09)
[2019-09-19] MEDS: Famotidine 20 MG TABLET PO SCH ×2 (08:50→20:09)
[2019-09-19] MEDS: *HR* HYDROcodone/Acet 7.5/325 mg TABLET PO PRN ×2 (08:51→20:13)
[2019-09-19] MEDS ORDERED: Iron Sucrose Complex 400 MG in 0.9 % Sodium Chloride 250 ML IVPB ONE (10:00)
[2019-09-20] MEDS: Ketorolac 15 MG/ML VIAL IVP SCH ×3 (00:05→11:30)
[2019-09-20 01:22] LABS: Hematocrit 35.7 % (37.5-50.1); Hemoglobin 12.2 g/dL (12.9-16.9); Mean Corpuscular HGB Conc 34.2 g/dL (31.6-35.5); Mean Corpuscular Hemoglobin 32.4 pg (28.0-33.3); Mean Corpuscular Volume 94.7 fL (83.0-100.0); Mean Platelet Volume 10.4 fL (9.4-12.4); Platelet Count 133 K/mcL (140-400); Red Blood Count 3.77 M/mcL (4.19-5.50); White Blood Count 10.7 K/mcL (4.3-11.1)
[2019-09-20] MEDS: Ipratropium/Albuterol Neb 3 ML IH SCH ×4 (01:25→11:24)
[2019-09-20 01:46] LABS: BUN/Creatinine Ratio 20 (6-26); Blood Urea Nitrogen 19 mg/dL (8-23); Calcium 7.9 mg/dL (8.6-10.3); Carbon Dioxide 26 mEq/L (23-29); Chloride 108 mEq/L (98-107); Glucose 133 mg/dL (70-105); Osmolality,Calculated 292 (280-300); Potassium 4.2 mEq/L (3.5-5.1); Sodium 139 mEq/L (136-145); eGFR For African Americans > 60 (> 60); eGFR For Non-African Americans > 60 (> 60)
[2019-09-20] MEDS: *HR* Heparin 5,000 UNIT/ML VIAL SQ SCH (05:33)
[2019-09-20 07:08] VITALS: BP 128/78
[2019-09-20] MEDS: Aspirin Enteric Coated 81 MG Tablet PO SCH (08:49)
[2019-09-20] MEDS: Famotidine 20 MG TABLET PO SCH (08:49)
[2019-09-20] MEDS: Gabapentin 300 MG CAPSULE PO SCH (08:49)
[2019-09-20] MEDS: Sennosides/Docusate Sodium TABLET PO SCH (08:49)
[2019-09-20] MEDS: *HR* HYDROcodone/Acet 7.5/325 mg TABLET PO PRN (08:50)
[2019-09-20] MEDS: Lisinopril 20 MG TABLET PO SCH (08:51)
== END 2019-09-20 11:55 | disposition home or self-care (01) | DRG 164 ==
LOC: SAMDAY 07:26 → 2NNU 11:46
PROVIDERS: ADMIT Thoracic Surgery (Cardiothoracic Vascular Surgery); ATTEND Thoracic Surgery (Cardiothoracic Vascular Surgery)

== ENCOUNTER 2021-10-19 11:30 | Inpatient (IN) ==
[2021-10-19] MEDS ORDERED: Isovue-370 500 ML BOTTLE IVP ONE (11:59)
[2021-10-19 12:23] LABS: Basophils % 0.4 %; Eosinophils % 0.4 %; Hematocrit 49.9 % (37.5-50.1); Hemoglobin 16.7 g/dL (12.9-16.9); Immature Granulocytes % 0.4 % (0-4); Lymphocytes % 26.1 %; Mean Corpuscular HGB Conc 33.5 g/dL (31.6-35.5); Mean Corpuscular Volume 92.8 fL (83.0-100.0); Mean Platelet Volume 10.2 fL (9.4-12.4); Monocytes # 0.8 K/mcL (0.0-1.3); Monocytes % 10.3 %; Neutrophils # 4.7 K/mcL (1.6-8.9); Platelet Count 220 K/mcL (140-400); Red Blood Count 5.38 M/mcL (4.19-5.50); Red Cell Distribution Width 12.4 % (11.5-14.5); Segmented Neutrophils % 62.4 %; White Blood Count 7.6 K/mcL (4.3-11.1)
[2021-10-19 12:38] LABS: BUN/Creatinine Ratio 10 (6-26); Blood Urea Nitrogen 9 mg/dL (8-23); Calcium 9.6 mg/dL (8.6-10.3); Carbon Dioxide 27 mEq/L (23-29); Chloride 100 mEq/L (98-107); Glucose 142 mg/dL (70-105); Osmolality,Calculated 281 (280-300); Potassium 4.2 mEq/L (3.5-5.1); Sodium 135 mEq/L (136-145); Troponin I < 0.03 ng/mL (< 0.04); eGFR For African Americans > 60 (> 60); eGFR For Non-African Americans > 60 (> 60)
[2021-10-19] MEDS ORDERED: *HR* LORazepam 2 MG/ML VIAL IVP ONE (12:41)
[2021-10-19] MEDS ORDERED: Lidocaine/EPI 1:100k 1% 50 ML VIAL ONE (12:50)
[2021-10-19 13:10] LABS: Albumin 4.1 g/dL (3.5-5.7); Albumin/Globulin Ratio 1.3 (1.1-2.2); Bilirubin,Direct 0.2 mg/dL (0.0-0.2); Bilirubin,Indirect 0.4 mg/dL (0.0-1.0); Bilirubin,Total 0.6 mg/dL (0.3-1.0); Globulin 3.2 g/dL (2.4-3.5); Total Protein 7.3 g/dL (6.4-8.9)
[2021-10-19] MEDS ORDERED: Lidocaine/EPI 1:100k 1% 20 ML VIAL INFILT ONE (14:22)
[2021-10-19] MEDS ORDERED: Naloxone 0.4 MG/ML INJ IVP PRN (15:03)
[2021-10-19] MEDS ORDERED: *HR* HYDROcodone/Acet 5/325 mg TABLET PO PRN (15:03)
[2021-10-19] MEDS ORDERED: Melatonin 3 MG TABLET PO PRN (15:03)
[2021-10-19] MEDS ORDERED: Acetaminophen 325 MG TABLET PO PRN (15:03)
[2021-10-19] MEDS ORDERED: Ondansetron 4 MG/2 ML VIAL IVP PRN (15:03)
[2021-10-19] MEDS ORDERED: NON-FORMULARY MEDICATION 1 EACH EACH (Fluticasone/Umeclidin/Vilanter [Trelegy Ellipta 100- IH SCH (15:45)
[2021-10-19] MEDS: Aspirin Enteric Coated 81 MG Tablet PO SCH (18:37)
[2021-10-19] MEDS ORDERED: *HR* Warfarin 5 MG TABLET PO SCH (18:45)
[2021-10-19] MEDS ORDERED: Warfarin perPT PO PRN (18:56)
[2021-10-19 19:28] LABS: Influenza B PCR Negative (Negative); Resp. Syncytial Virus PCR Negative (Negative)
[2021-10-19 19:29] LABS: SARS-CoV-2 by PCR (In House) Negative (Negative)
[2021-10-19 19:34] LABS: Influenza A PCR Positive (Negative)
[2021-10-19] MEDS: Tiotropium 10 INH DOSE IH SCH (20:27)
[2021-10-19] MEDS: Budesonide/Formoterol 80/4.5 1 PUFF INH IH SCH (20:28)
[2021-10-19] MEDS ORDERED: 0.9 % Sodium Chloride 1,000 ML IVC ONE ×2 (20:43→22:30)
[2021-10-19 22:23] LABS: INR 6.7; Prothrombin Time 73.1 Seconds (9.4-12.1)
[2021-10-19] MEDS ORDERED: 0.9 % Sodium Chloride 1,000 ML IV ONE (22:30)
[2021-10-19] MEDS ORDERED: 0.9 % Sodium Chloride 1,000 ML ONE (22:32)
[2021-10-20 01:32] LABS: Basophils % 0.2 %; Hematocrit 33.3 % (37.5-50.1); Hemoglobin 11.3 g/dL (12.9-16.9); Immature Granulocytes % 0.8 % (0-4); Lymphocytes # 1.2 K/mcL (0.6-4.6); Lymphocytes % 11.5 %; Mean Corpuscular HGB Conc 33.9 g/dL (31.6-35.5); Mean Corpuscular Hemoglobin 31.8 pg (28.0-33.3); Mean Corpuscular Volume 93.8 fL (83.0-100.0); Mean Platelet Volume 10.2 fL (9.4-12.4); Neutrophils # 7.8 K/mcL (1.6-8.9); Platelet Count 214 K/mcL (140-400); Red Blood Count 3.55 M/mcL (4.19-5.50); Red Cell Distribution Width 12.6 % (11.5-14.5); Segmented Neutrophils % 77.5 %; White Blood Count 10.1 K/mcL (4.3-11.1)
[2021-10-20 01:48] LABS: BUN/Creatinine Ratio 15 (6-26); Blood Urea Nitrogen 15 mg/dL (8-23); Calcium 7.4 mg/dL (8.6-10.3); Carbon Dioxide 22 mEq/L (23-29); Chloride 107 mEq/L (98-107); Glucose 143 mg/dL (70-105); Magnesium 1.8 mg/dL (1.6-2.6); Osmolality,Calculated 285 (280-300); Phosphorous 3.3 mg/dL (2.7-4.5); Potassium 4.6 mEq/L (3.5-5.1); Sodium 136 mEq/L (136-145); eGFR For African Americans > 60 (> 60); eGFR For Non-African Americans > 60 (> 60)
[2021-10-20 01:55] LABS: Activated Partial Thrombo Time 43.8 Seconds (26.0-36.0)
[2021-10-20 02:05] LABS: INR 6.4; Prothrombin Time 70.3 Seconds (9.4-12.1)
[2021-10-20] MEDS ORDERED: 0.9 % Sodium Chloride 1,000 ML IVC ONE ×2 (02:18→05:12)
[2021-10-20] MEDS ORDERED: cefTRIAXone 1,000 MG in Water for inj. (sterile) 10 ML IVP SCH (03:50)
[2021-10-20] MEDS ORDERED: Azithromycin 500 MG in 0.9 % Sodium Chloride 250 ML IVPB SCH (04:00)
[2021-10-20] MEDS ORDERED: Norepinephrine 4 MG/254 ML IV.SOLN IVC SCH ×2 (05:30→07:50)
[2021-10-20 07:00] LABS: ABG Base Excess -8 mEq/L (-2 to 3); ABG HCO3 16 mEq/L (21-27); ABG Oxygen Saturation 95 % (95-98); ABG PCO2 28 mmHg (35-45); ABG PH 7.38 pH Units (7.32-7.45); ABG PO2 77 mmHg (85-104); ABG TCO2 17 mEq/L (20-26)
[2021-10-20] MEDS ORDERED: *HR* Norepinephrine 4 MG/4 ML VIAL IVC ONE (07:53)
[2021-10-20] MEDS ORDERED: Albumin Human 5% 25.0 GM/500 ML IV.SOLN ONE ×2 (07:53→09:14)
[2021-10-20] MEDS ORDERED: *HR* Vasopressin 20 UNIT/ML VIAL ONE (07:54)
[2021-10-20] MEDS ORDERED: *HR* Rocuronium Bromide 50 MG/5 ML VIAL ONE (07:56)
[2021-10-20] MEDS ORDERED: *HR* Midazolam HCl 2 MG/2 ML VIAL ONE (07:56)
[2021-10-20] MEDS ORDERED: *HR* FentaNYL (PF) 100 MCG/2 ML VIAL ONE (07:56)
[2021-10-20] MEDS ORDERED: *HR* Succinylcholine 200 MG/10 ML VIAL IVP ONE (07:56)
[2021-10-20] MEDS ORDERED: Lidocaine HCL 4 ML Topical Solution (Laryng-O-Jet Kit Sterile Pak) TP ONE ×2 (07:56→08:04)
[2021-10-20] MEDS ORDERED: *HR* Propofol 200 MG/20 ML VIAL IVP ONE (07:56)
[2021-10-20] MEDS ORDERED: Lidocaine -MPF 2% 5 ML VIAL ONE (07:56)
[2021-10-20] MEDS ORDERED: Ondansetron 4 MG/2 ML VIAL ONE (07:56)
[2021-10-20] MEDS ORDERED: Heparin 1,000 UNITS/500 mL 500 ML ONE (08:12)
[2021-10-20] MEDS: Albumin Human 5% 12.5 GM/250 ML IV.SOLN IVC SCH (09:14)
[2021-10-20] MEDS ORDERED: WATER FOR INJ IVPB ONE (09:27)
[2021-10-20] MEDS ORDERED: HUM PROTHROMBIN CPLX IVPB ONE (09:27)
[2021-10-20] MEDS ORDERED: [UNRECOGNIZED DRUG - OTHER] IVPB ONE (09:27)
[2021-10-20] MEDS ORDERED: 0.9 % Sodium Chloride 250 ML ONE ×3 (09:28→09:41)
[2021-10-20 09:45] LABS: Hematocrit 22.9 % (37.5-50.1); Hemoglobin 7.3 g/dL (12.9-16.9)
[2021-10-20] MEDS: Aspirin Enteric Coated 81 MG Tablet PO SCH (10:05)
[2021-10-20] MEDS: Tiotropium 10 INH DOSE IH SCH (11:17)
[2021-10-20] MEDS: Budesonide/Formoterol 80/4.5 1 PUFF INH IH SCH ×2 (11:17→19:51)
[2021-10-20 11:19] LABS: ABG Base Excess -6 mEq/L (-2 to 3); ABG Chloride 110 mEq/L (98-107); ABG Glucose 173 mg/dL (60-95); ABG HCO3 21 mEq/L (21-27); ABG Ionized Calcium 0.97 mmol/L (1.15-1.35); ABG Oxygen Saturation 100 % (95-98); ABG PCO2 47 mmHg (35-45); ABG PH 7.25 pH Units (7.32-7.45); ABG PO2 371 mmHg (85-104); ABG TCO2 22 mEq/L (20-26)
[2021-10-20 11:22] LABS: Basophils % 0.1 %; Hematocrit 23.3 % (37.5-50.1); Hemoglobin 7.6 g/dL (12.9-16.9); Immature Granulocytes % 0.6 % (0-4); Lymphocytes # 0.4 K/mcL (0.6-4.6); Lymphocytes % 5.9 %; Mean Corpuscular HGB Conc 32.6 g/dL (31.6-35.5); Mean Corpuscular Hemoglobin 30.6 pg (28.0-33.3); Mean Platelet Volume 10.7 fL (9.4-12.4); Monocytes % 14.3 %; Neutrophils # 5.3 K/mcL (1.6-8.9); Platelet Count 102 K/mcL (140-400); Red Blood Count 2.48 M/mcL (4.19-5.50); Red Cell Distribution Width 13.2 % (11.5-14.5); Segmented Neutrophils % 79.1 %; White Blood Count 6.8 K/mcL (4.3-11.1)
[2021-10-20] MEDS ORDERED: Sugammadex Sodium 200 MG/2 ML VIAL IV ONE (11:35)
[2021-10-20 11:39] LABS: Activated Partial Thrombo Time 30.9 Seconds (26.0-36.0); BUN/Creatinine Ratio 18 (6-26); Blood Urea Nitrogen 23 mg/dL (8-23); Calcium 6.4 mg/dL (8.6-10.3); Carbon Dioxide 20 mEq/L (23-29); Chloride 110 mEq/L (98-107); Glucose 182 mg/dL (70-105); Osmolality,Calculated 292 (280-300); Potassium 4.8 mEq/L (3.5-5.1); Sodium 137 mEq/L (136-145); eGFR For African Americans > 60 (> 60); eGFR For Non-African Americans 55 (> 60)
[2021-10-20] MEDS ORDERED: *HR* Magnesium Sulfate 1 GM/2 ML VIAL ONE (11:44)
[2021-10-20 12:08] LABS: ABG Base Excess -4 mEq/L (-2 to 3); ABG Chloride 108 mEq/L (98-107); ABG Glucose 160 mg/dL (60-95); ABG HCO3 23 mEq/L (21-27); ABG Ionized Calcium 0.96 mmol/L (1.15-1.35); ABG Oxygen Saturation 100 % (95-98); ABG PCO2 48 mmHg (35-45); ABG PH 7.28 pH Units (7.32-7.45); ABG PO2 428 mmHg (85-104); ABG TCO2 24 mEq/L (20-26)
[2021-10-20] MEDS ORDERED: Ipratropium/Albuterol Neb 3 ML IH ONE (12:32)
[2021-10-20 12:42] LABS: INR 1.3
[2021-10-20] MEDS ORDERED: Albuterol 2.5 MG/3 ML NEBULIZER ONE (12:58)
[2021-10-20] MEDS ORDERED: Ipratropium/Albuterol Neb 3 ML IH SCH (13:00)
[2021-10-20] MEDS ORDERED: Melatonin 3 MG TABLET PO PRN (14:18)
[2021-10-20] MEDS ORDERED: Ondansetron 4 MG/2 ML VIAL IVP PRN (14:18)
[2021-10-20] MEDS ORDERED: Naloxone 0.4 MG/ML INJ IVP PRN (14:18)
[2021-10-20] MEDS: *HR* Heparin 5,000 UNIT/ML VIAL SQ SCH ×2 (15:07→23:04)
[2021-10-20] MEDS: Gabapentin 300 MG CAPSULE PO SCH ×2 (15:07→20:26)
[2021-10-20] MEDS: 0.9 % Sodium Chloride 1,000 ML IVC SCH (15:08)
[2021-10-20] MEDS ORDERED: Calcium Gluconate 1gm/50mL 1 GM/50 ML BAG IVPB ONE (16:53)
[2021-10-20 16:58] LABS: Hematocrit 31.2 % (37.5-50.1); Hemoglobin 10.8 g/dL (12.9-16.9); Immature Platelets 7.3 % (1.1-6.1); Mean Corpuscular HGB Conc 34.6 g/dL (31.6-35.5); Mean Corpuscular Hemoglobin 31.2 pg (28.0-33.3); Mean Corpuscular Volume 90.2 fL (83.0-100.0); Mean Platelet Volume 10.6 fL (9.4-12.4); Red Blood Count 3.46 M/mcL (4.19-5.50); Red Cell Distribution Width 13.8 % (11.5-14.5); White Blood Count 9.3 K/mcL (4.3-11.1)
[2021-10-20 17:01] LABS: INR 1.3; Prothrombin Time 14.4 Seconds (9.4-12.1)
[2021-10-20 17:07] LABS: BUN/Creatinine Ratio 18 (6-26); Blood Urea Nitrogen 19 mg/dL (8-23); Calcium 6.8 mg/dL (8.6-10.3); Carbon Dioxide 25 mEq/L (23-29); Chloride 108 mEq/L (98-107); Glucose 183 mg/dL (70-105); Magnesium 2.2 mg/dL (1.6-2.6); Osmolality,Calculated 291 (280-300); Phosphorous 1.1 mg/dL (2.7-4.5); Potassium 4.1 mEq/L (3.5-5.1); Sodium 137 mEq/L (136-145); eGFR For African Americans > 60 (> 60); eGFR For Non-African Americans > 60 (> 60)
[2021-10-20] MEDS ORDERED: *HR* Warfarin 2.5 MG TABLET PO ONE (19:00)
[2021-10-20] MEDS: Famotidine 20 MG TABLET PO SCH (20:26)
[2021-10-20 23:40] LABS: Hematocrit 28.9 % (37.5-50.1); Hemoglobin 10.3 g/dL (12.9-16.9); Immature Platelets 7.4 % (1.1-6.1); Mean Corpuscular HGB Conc 35.6 g/dL (31.6-35.5); Mean Corpuscular Hemoglobin 32.1 pg (28.0-33.3); Mean Platelet Volume 10.8 fL (9.4-12.4); Red Blood Count 3.21 M/mcL (4.19-5.50); Red Cell Distribution Width 14.3 % (11.5-14.5)
[2021-10-21] MEDS: *HR* HYDROcodone/Acet 5/325 mg TABLET PO PRN ×3 (00:37→17:17)
[2021-10-21] MEDS: 0.9 % Sodium Chloride 1,000 ML IVC SCH (04:17)
[2021-10-21] MEDS: *HR* Heparin 5,000 UNIT/ML VIAL SQ SCH ×3 (05:08→20:25)
[2021-10-21 06:11] LABS: BUN/Creatinine Ratio 18 (6-26); Blood Urea Nitrogen 14 mg/dL (8-23); Calcium 7.1 mg/dL (8.6-10.3); Carbon Dioxide 27 mEq/L (23-29); Chloride 107 mEq/L (98-107); Glucose 138 mg/dL (70-105); Osmolality,Calculated 289 (280-300); Potassium 4.2 mEq/L (3.5-5.1); Sodium 138 mEq/L (136-145); eGFR For African Americans > 60 (> 60); eGFR For Non-African Americans > 60 (> 60)
[2021-10-21 06:12] LABS: Hematocrit 28.1 % (37.5-50.1); Hemoglobin 9.8 g/dL (12.9-16.9); Immature Platelets 7.1 % (1.1-6.1); Mean Corpuscular HGB Conc 34.9 g/dL (31.6-35.5); Mean Corpuscular Hemoglobin 31.5 pg (28.0-33.3); Mean Corpuscular Volume 90.4 fL (83.0-100.0); Mean Platelet Volume 10.4 fL (9.4-12.4); Red Blood Count 3.11 M/mcL (4.19-5.50); Red Cell Distribution Width 14.2 % (11.5-14.5); White Blood Count 15.7 K/mcL (4.3-11.1)
[2021-10-21] MEDS: Famotidine 20 MG TABLET PO SCH ×2 (07:25→20:25)
[2021-10-21] MEDS: Aspirin Enteric Coated 81 MG Tablet PO SCH (07:25)
[2021-10-21] MEDS: Gabapentin 300 MG CAPSULE PO SCH ×3 (07:25→20:25)
[2021-10-21] MEDS: Budesonide/Formoterol 80/4.5 1 PUFF INH IH SCH ×2 (07:30→19:35)
[2021-10-22] MEDS: *HR* HYDROcodone/Acet 5/325 mg TABLET PO PRN ×3 (03:06→15:41)
[2021-10-22 04:01] LABS: Hematocrit 25.9 % (37.5-50.1); Hemoglobin 8.7 g/dL (12.9-16.9); Mean Corpuscular HGB Conc 33.6 g/dL (31.6-35.5); Mean Corpuscular Hemoglobin 30.7 pg (28.0-33.3); Mean Corpuscular Volume 91.5 fL (83.0-100.0); Mean Platelet Volume 10.7 fL (9.4-12.4); Platelet Count 150 K/mcL (140-400); Red Blood Count 2.83 M/mcL (4.19-5.50); Red Cell Distribution Width 14.4 % (11.5-14.5); White Blood Count 13.7 K/mcL (4.3-11.1)
[2021-10-22 04:19] LABS: BUN/Creatinine Ratio 18 (6-26); Blood Urea Nitrogen 12 mg/dL (8-23); Calcium 7.2 mg/dL (8.6-10.3); Carbon Dioxide 29 mEq/L (23-29); Chloride 105 mEq/L (98-107); Glucose 140 mg/dL (70-105); Magnesium 2.2 mg/dL (1.6-2.6); Osmolality,Calculated 286 (280-300); Potassium 3.8 mEq/L (3.5-5.1); Sodium 137 mEq/L (136-145); eGFR For African Americans > 60 (> 60); eGFR For Non-African Americans > 60 (> 60)
[2021-10-22] MEDS: *HR* Heparin 5,000 UNIT/ML VIAL SQ SCH ×3 (05:52→20:46)
[2021-10-22] MEDS: Famotidine 20 MG TABLET PO SCH ×2 (09:54→20:46)
[2021-10-22] MEDS: Gabapentin 300 MG CAPSULE PO SCH ×3 (09:54→20:46)
[2021-10-22] MEDS: Aspirin Enteric Coated 81 MG Tablet PO SCH (09:54)
[2021-10-22] MEDS: Budesonide/Formoterol 80/4.5 1 PUFF INH IH SCH ×2 (10:19→20:23)
[2021-10-22] MEDS: Albumin Human 5% 12.5 GM/250 ML IV.SOLN IVC SCH (21:26)
[2021-10-23 03:35] LABS: Hematocrit 25.1 % (37.5-50.1); Hemoglobin 8.6 g/dL (12.9-16.9); Immature Granulocytes % 0.7 % (0-4); Lymphocytes # 0.7 K/mcL (0.6-4.6); Mean Corpuscular HGB Conc 34.3 g/dL (31.6-35.5); Mean Corpuscular Hemoglobin 31.6 pg (28.0-33.3); Mean Corpuscular Volume 92.3 fL (83.0-100.0); Monocytes # 0.6 K/mcL (0.0-1.3); Monocytes % 6.6 %; Neutrophils # 7.6 K/mcL (1.6-8.9); Platelet Count 164 K/mcL (140-400); Red Blood Count 2.72 M/mcL (4.19-5.50); Red Cell Distribution Width 14.1 % (11.5-14.5); Segmented Neutrophils % 84.7 %
[2021-10-23 03:58] LABS: BUN/Creatinine Ratio 20 (6-26); Blood Urea Nitrogen 13 mg/dL (8-23); Calcium 7.5 mg/dL (8.6-10.3); Carbon Dioxide 31 mEq/L (23-29); Chloride 104 mEq/L (98-107); Glucose 128 mg/dL (70-105); Osmolality,Calculated 288 (280-300); Potassium 3.9 mEq/L (3.5-5.1); Sodium 138 mEq/L (136-145); eGFR For African Americans > 60 (> 60); eGFR For Non-African Americans > 60 (> 60)
[2021-10-23] MEDS: *HR* HYDROcodone/Acet 5/325 mg TABLET PO PRN ×3 (04:19→16:18)
[2021-10-23] MEDS: *HR* Heparin 5,000 UNIT/ML VIAL SQ SCH ×3 (05:41→20:35)
[2021-10-23] MEDS: Budesonide/Formoterol 80/4.5 1 PUFF INH IH SCH ×2 (07:38→19:49)
[2021-10-23] MEDS: Famotidine 20 MG TABLET PO SCH ×2 (07:49→20:34)
[2021-10-23] MEDS: Gabapentin 300 MG CAPSULE PO SCH ×3 (07:49→20:34)
[2021-10-23] MEDS: Aspirin Enteric Coated 81 MG Tablet PO SCH (07:49)
[2021-10-23] MEDS ORDERED: MOM Conc 10 ML UD.LIQ PO ONE (09:54)
[2021-10-23] MEDS: Sennosides/Docusate Sodium TABLET PO SCH (20:34)
[2021-10-24 05:08] LABS: Basophils % 0.1 %; Eosinophils # 0.1 K/mcL (0.0-0.6); Eosinophils % 0.5 %; Hematocrit 28.5 % (37.5-50.1); Hemoglobin 9.5 g/dL (12.9-16.9); Immature Granulocytes % 0.3 % (0-4); Lymphocytes # 1.2 K/mcL (0.6-4.6); Lymphocytes % 12.7 %; Mean Corpuscular HGB Conc 33.3 g/dL (31.6-35.5); Mean Corpuscular Hemoglobin 30.7 pg (28.0-33.3); Mean Corpuscular Volume 92.2 fL (83.0-100.0); Mean Platelet Volume 9.9 fL (9.4-12.4); Monocytes % 10.2 %; Neutrophils # 7.1 K/mcL (1.6-8.9); Platelet Count 206 K/mcL (140-400); Red Blood Count 3.09 M/mcL (4.19-5.50); Red Cell Distribution Width 13.8 % (11.5-14.5); Segmented Neutrophils % 76.2 %; White Blood Count 9.4 K/mcL (4.3-11.1)
[2021-10-24 05:26] LABS: BUN/Creatinine Ratio 16 (6-26); Blood Urea Nitrogen 12 mg/dL (8-23); Carbon Dioxide 28 mEq/L (23-29); Chloride 103 mEq/L (98-107); Glucose 112 mg/dL (70-105); Osmolality,Calculated 283 (280-300); Sodium 136 mEq/L (136-145); eGFR For African Americans > 60 (> 60); eGFR For Non-African Americans > 60 (> 60)
[2021-10-24] MEDS: *HR* Heparin 5,000 UNIT/ML VIAL SQ SCH ×2 (05:40→15:30)
[2021-10-24] MEDS: Sennosides/Docusate Sodium TABLET PO SCH (08:38)
[2021-10-24] MEDS: Aspirin Enteric Coated 81 MG Tablet PO SCH (08:38)
[2021-10-24] MEDS: Gabapentin 300 MG CAPSULE PO SCH ×2 (08:38→15:30)
[2021-10-24] MEDS: *HR* HYDROcodone/Acet 5/325 mg TABLET PO PRN ×2 (08:38→15:30)
[2021-10-24] MEDS: Famotidine 20 MG TABLET PO SCH (08:39)
[2021-10-24] MEDS: Budesonide/Formoterol 80/4.5 1 PUFF INH IH SCH (10:18)
[2021-10-24 12:20] VITALS: TEMP 99.2
[2021-10-24 14:50] VITALS: BP 145/84; PULSE 98; O2SAT 94
== END 2021-10-24 16:40 | disposition home or self-care (01) | DRG 163 ==
LOC: 2NNU 11:30 → EMEROOARM 11:30 → SUATTDRO 15:54 → 2NNU 20:26
PROVIDERS: ADMIT Hospitalist; ATTEND Internal Medicine